=== PATIENT | female | born 1955 | race African-American/Black ===

== ENCOUNTER 2025-03-22 14:15 | Emergency (ER) | payer MEDICARE, MEDICAID, SELFPAY ==
--- OUTSIDE RECORDS SUMMARY | 2009-09-29 09:45 | XMS_ITS | Continuity of Care Document ---
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 [address] [facility] [address], [place], [address], [place]. tel:[phone] Family History Family Member Type Diagnosis Age At Onset No Information Payers Payer name Insurance type Covered constitution party ID Authoriza tion(s) Medicare [facility] [id number] Medicaid [facility] [id number] Social History Type Description Quantity Date Captured Comments Sex Female Smoking Status No Information Chief Complaint And Reason For Visit No Information Reason For Referral Reason For Referral No Information History Of Present Illness Encounter Date Complaint History Of Prese nt Illness No Information Functional Status Date Functional Assessmen t No Information Instructions Date Instruction Additional Infor mation No Information Assessments Type Assessment Date No Information Patient Care Teams Name Effective Dates (start - stop) Status Members No Information
--- OUTSIDE RECORDS SUMMARY | 2025-03-22 14:17 | XMS_ITS | Encounter Summary ---
Author Organization [facility] Address [address] [place] [address] Phone Care Team Providers Care Special Programs Director Name Role Phone Baron Kaur MD Primary Care Provider Encounter Details Date Type Department Care Team (Late st Contact Info) Description 07/05/2022 Telephone [facility] Endocrinology Metabolism and Lipid [address] 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
--- OUTSIDE RECORDS SUMMARY | 2025-03-22 14:17 | XMS_ITS | Data Portability ---
[facility] Organization [facility] Address [address] [place] [address] Care Team Providers Care Bulk Pigment Reducer Name Role Phone RICK YUAN Lance Crewmember [facility] (RHEUMATOLOGY) Rheumatolog ist YEISON ENRIQUE Breast Surgeon Assessment Encounter Date Assessment Date Assessment LastModified by Organization Details LastModified Time 10/09/2024 10/09/2024 The bilateral nature suggests that she may be resting the lateral parts of her lower legs on some object. oajao Not available 10/09/2024 13:49:22 10/18/2024 10/18/2024 The bilateral nature suggests that she may be resting the lateral parts of her lower legs on some object. oajao Not available 10/18/2024 13:08:52 Plan of Treatment Reminders Order Date Submit Date Provider Last Modified By Organization Details Last Modified Time Details Appointments NEW PATIENT 30 2024 10:30A M Unassigned Not available Not available Not available ANY 15 2024 10:30A M Baron Kaur MD Not available Not available Not available Lab HbA1c (hemogl obin A1c), blood 2024 025 [facility], [address] [facility], [address], [place], [address], 03/13/2025 08:30:11 lipid panel, serum 2024 025 [facility], [address] [facility], [address], [place], [address], 03/13/2025 08:30:10 albumin /creati nine, mass ratio, urine 2023 024 EMANUEL ALEJANDRO, [address] [place] [address], [address], [place], [address], 09/13/2024 10:13:37 lipid panel, serum 2023 024 E[facility]UEL [facility]AL[facility], [address] [place] [address], [address], [place], [address], 09/13/2024 10:13:38 HbA1c (hemogl obin A1c), blood 2023 024 [facility]UEL WAL[facility], [address] [place] [address], [address], [place], [address], 09/13/2024 10:13:39 Referral vascula r surgeon referra l 2024 025 EMANUEL Venegas MD, [address] [facility] [address],, [place], [address], 02/27/2025 04:22:11 Procedures None recorde d. Surgeries None recorde d. Imaging None recorde d. Medication Orders clotrim azole-b etameth asone 1 %-0.05 % topical cream 2024 025 [id number], [address] [place], [place], [id number], 10/09/2024 11:30:24 terbina fine HCl 250 mg tablet 2024 025 [id number], [address] [place], [id number], 01/17/2025 12:09:41 Lantus Solosta r U-100 Insulin 100 unit/mL (3 mL) subcuta neous pen 2024 025 [facility]EKA [facility][id number], [address] [place], [place], [id number], 09/13/2024 12:59:31 Lantus Solosta r U-100 Insulin 100 unit/mL (3 mL) subcuta neous pen 2023 024 [id number], [address] [place], [place], [id number], 03/29/2024 13:22:32 Patient TargetsNo targets recorded. Patient Instructions Encounter Date Encounter Id Patient Instructions Last Modified By Organization Details Last Modified Time 03/29/2024 [id number] Lantus 13 units AM, 7 units PM Labs in May, Follow up in June, oajao Not available 03/29/2024 13:39:01 09/13/2024 [id number] CGM Increase Aleks tus back to 13 units AM and & 7 units HS Close follow up with in 6 weeks with all your medications Lance Crewmember (Scheduled) oajao Not available 09/13/2024 13:33:14 10/09/2024 [id number] Terbinafine, uriel e effects were discussed Clotrimazole/Betame thasone Follow up in 2 weeks oajao Not available 10/09/2024 13:50:00 10/18/2024 [id number] Follow up in 3 months and PRN oajao Not available 10/18/2024 13:12:28 01/17/2025 [id number] A healthy lifestyle: care instructions oajao Not available 01/17/2025 12:04:37 Labs [employer] Ophthalmology Vascular surgery Follow up in 4 months and PRN oajao Not available 01/17/2025 12:23:35 Reason for Referral Vascular Surgeon Referral fo r Right carotid artery stenosis R. carotid artery stenosis, multiple risk factors Referring Physician: Baron Kaur, Internal Medicine, Encounter Date: 01/17/2025 Results Created Date Observation Date Name Description Value Unit Range Abnormal Flag Note LastModifiedBy Organization Detail LastModifiedTime 03/05/20 24 03/05/2024 Compr ehens robyn metab olic 2000 panel - Serum or Plasm a protein [mass/volume ] in serum or plasma 7.6 g/dL low: 6.1g/d Lhigh: 8.4g/d L Total Prote in 7.6 6.1 - 8.4 g/dL [facility] Not Available Not Available 07/24/2024 14:56:12 03/05/20 24 03/05/2024 [facility] [employer] [facility] 1999 panel - Serum or Plasm a albumin [mass/volume ] in serum or plasma by bromocresol green (bcg) dye binding method 4.2 g/dL low: 3.5g/d Lhigh: 5.2g/d L Album in 4.2 3.5 - 5.2 g/dL [facility] Not Available Not Available 07/24/2024 14:56:12 03/05/20 24 03/05/2024 [facility] [employer] extraTKT 2000 panel - Serum or Plasm a calcium [mass/volume ] in serum or plasma 9.2 mg/dL low: 8.6mg/ dLhigh : 10.3mg /dL Calci um 9.2 8.6 - 10.3 mg/dL [facility] Not Available Not Available 07/24/2024 14:56:12 03/05/20 24 03/05/2024 [facility] [place] 1999 panel - Serum or Plasm a urea nitrogen [mass/volume ] in serum or plasma 7 mg/dL low: 7mg/dL high: 23mg/d L BUN 7 7 - 23 mg/dL [facility] Not Available Not Available 07/24/2024 14:56:12 03/05/20 24 03/05/2024 [facility] ic 1999 panel - Serum or Plasm a bilirubin.to yarelis [mass/volume ] in serum or plasma 0.56 mg/dL low: 0.2mg/ dLhigh : 1.4mg/ dL Total Bilir ubin 0.56 0.20 - 1.40 mg/dL [facility] Not Available Not Available 07/24/2024 14:56:12 03/05/20 24 03/05/2024 [facility] ic 1999 panel - Serum or Plasm a alkaline phosphatase [enzymatic activity/vol ume] in serum or plasma 102 text: 35 - 129 IU/L Alk Phos, Total 102 35 - 129 IU/L [facility] Not Available Not Available 07/24/2024 14:56:12 03/05/20 24 03/05/2024 [facility] [employer] robyn [employer] olic 1999 panel - Serum or Plasm a aspartate aminotransfe rase [enzymatic activity/vol ume] in serum or plasma 22 text: 11 - 47 IU/L AST (SGOT ) 22 11 - 47 IU/L [facility] Not Available Not Available 07/24/2024 14:56:12 03/05/20 24 03/05/2024 [facility] [employer] robyn [employer] olic 1999 panel - Serum or Plasm a alanine aminotransfe rase [enzymatic activity/vol ume] in serum or plasma by no addition of P-5'-P 17 text: 6 - 53 IU/L ALT (SGPT ) 17 6 - 53 IU/L [facility] Not Available Not Available 07/24/2024 14:56:12 03/05/20 24 03/05/2024 [facility] [employer] ic 1999 panel - Serum or Plasm a creatinine [mass/volume ] in serum or plasma 0.63 mg/dL low: 0.6mg/ dLhigh : 1.1mg/ dL Creat inine 0.63 0.60 - 1.10 mg/dL [facility] Not Available Not Available 07/24/2024 14:56:12 03/05/20 24 03/05/2024 [facility] [employer] olic 1999 panel - Serum or Plasm a sodium [moles/volum e] in serum or plasma 141 mmol/ L low: 135mmo l/Lhig h: 145mmo l/L Sodiu m 141 135 - 145 mmol/ L [facility] Not Available Not Available 07/24/2024 14:56:12 03/05/20 24 03/05/2024 [employer] robyn [employer] olic 1999 panel - Serum or Plasm a potassium [moles/volum e] in serum or plasma 3.6 mmol/ L low: 3.3mmo l/Lhig h: 5.1mmo l/L Potas sium 3.6 3.3 - 5.1 mmol/ L [facility] Not Available Not Available 07/24/2024 14:56:12 03/05/20 24 03/05/2024 Compr ehens robyn metab olic 1999 panel - Serum or Plasm a chloride [moles/volum e] in serum or plasma 102 mmol/ L low: 95mmol /Lhigh : 107mmo l/L Chlor pretty 102 95 - 107 mmol/ L [facility] Not Available Not Available 07/24/2024 14:56:12 03/05/20 24 03/05/2024 Compr ehens robyn metab olic 1999 panel - Serum or Plasm a bicarbonate [moles/volum e] in serum or plasma 26 mmol/ L low: 21mmol /Lhigh : 29mmol /L CO2 Jeremiah nt 26 21 - 29 mmol/ L [facility] Not Available Not Available 07/24/2024 14:56:12 03/05/20 24 03/05/2024 Compr ehens robyn metab olic 1999 panel - Serum or Plasm a glucose [mass/volume ] in serum or plasma 194 mg/dL low: 64mg/d Lhigh: 99mg/d L high Gluco se 194 (H) 64 - 99 mg/dL [facility] Not Available Not Available 07/24/2024 14:56:12 03/05/20 24 03/05/2024 Compr ehens robyn metab olic 1999 panel - Serum or Plasm a glomerular filtration rate/1.73 sq M.predicted among non-blacks [volume rate/area] in serum, plasma or blood by creatinine-b ased formula (MDRD) >90.0 text: >60.0 mL/min /1.73 m2 eGFR >90.0 >60.0 mL/mi n/1.[address] [facility] Not Available Not Available 07/24/2024 14:56:12 03/05/20 24 03/05/2024 Compr ehens robyn metab olic 2000 panel - Serum or Plasm a interpretati on and review of laboratory results ABNORM AL Not Available Not Available 14:56:12 09/13/19 25 09/13/2024 ALBUM IN/CR EATIN INE RATIO ,URIN E creatinine, urine 46.7 mg/dL notest ab. Not Available [facility] ([facility]) [address] [place], [address], 09/13/2024 10:13:37 09/13/19 25 09/13/2024 ALBUM IN/CR EATIN INE RATIO ,URIN E albumin, urine 22.4 ug/mL notest ab. Not Available [facility] ([facility]) [address] [place], [address], 09/13/2024 10:13:37 09/13/19 25 09/13/2024 ALBUM IN/CR EATIN INE RATIO ,URIN E alb/creat ratio 48 mg/g_ creat 0-29 above high normal Lori l: 0 - 29 Moder ately incre ased: 30 - 300 Sever theresa incre ased: >300 Not Available [facility] ([facility]) [address] [place], [address], 09/13/2024 10:13:37 09/13/19 25 09/13/2024 LIPID PANEL cholesterol, total 150 mg/dL 100-19 9 Not Available [facility] ([facility]) [address] [place], [address], 09/13/2024 10:13:38 09/13/19 25 09/13/2024 LIPID PANEL triglyceride s 144 mg/dL 0-149 Not Available [facility] ([facility]) [address] [place], [address], 09/13/2024 10:13:38 09/13/19 25 09/13/2024 LIPID PANEL HDL cholesterol 37 mg/dL >39 below low normal Not Available [facility] ([facility]) [address] [place], [address], 09/13/2024 10:13:38 09/13/19 25 09/13/2024 LIPID PANEL VLDL cholesterol maximo 25 mg/dL 5-40 Not Available [facility] ([facility]) [address] [place], [address], 09/13/2024 10:13:38 09/13/19 25 09/13/2024 LIPID PANEL LDL chol calc ([facility]) 88 mg/dL 0-99 Not Available [facility] ([facility]) [address] [facility], [place], [address], 09/13/2024 10:13:38 09/13/19 25 09/13/2024 HEMOG LOBIN A1C hemoglobin A1C 8.3 % 4.8-5. 6 above high normal Predi abete s: 5.7 - 6.4 Diabe bre: >6.4 Glyce nimesh contr ol for adult s with diabe bre: <7.0 Not Available [facility] ([facility]) [address] [facility], [place], [address], 09/13/2024 10:13:39 09/25/19 25 09/24/2024 CBC W Auto Diffe renti al panel - Blood leukocytes [#/volume] in blood by automated count 5.7 K/uL low: 3.6K/u Lhigh: 11.2K/ uL White Blood Count 5.7 3.6 - 11.2 K/uL [facility] Not Available Not Available 09/26/2024 16:12:44 09/25/19 25 09/24/2024 CBC W Auto Diffe renti al panel - Blood erythrocytes [#/volume] in blood by automated count 4.14 text: 3.63 - 4.92 M/uL RBC 4.14 3.63 - 4.92 M/uL [facility] Not Available Not Available 09/26/2024 16:12:44 09/25/19 25 09/24/2024 CBC W Auto Diffe renti al panel - Blood hemoglobin [mass/volume ] in blood 13.7 g/dL low: 11.9g/ dLhigh : 15.5g/ dL Hemog lobin 13.7 11.9 - 15.5 g/dL [facility] Not Available Not Available 09/26/2024 16:12:44 09/25/19 25 09/24/2024 CBC W Auto Diffe renti al panel - Blood hematocrit [volume fraction] of blood by automated count 40.9 % low: 36.1%h igh: 44.3% Hemat ocrit 40.9 36.1 - 44.3 % [facility] Not Available Not Available 09/26/2024 16:12:44 09/25/19 25 09/24/2024 CBC W Auto Diffe gege al panel - Blood MCV [entitic mean volume] in red blood cells by automated count 98.9 fL low: 80fLhi gh: 97.6fL high MCV 98.9 (H) 80.0 - 97.[address] [facility] Not Available Not Available 09/26/2024 16:12:44 09/25/19 25 09/24/2024 CBC W Auto Difftess de guzman al panel - Blood MCH [entitic mass] by automated count 33.1 pg low: 26.7pg high: 33.7pg MCH 33.1 26.7 - 33.[address] [facility] Not Available Not Available 09/26/2024 16:12:44 09/25/19 25 09/24/2024 CBC W Auto Diffe gege al panel - Blood MCHC [entitic mass/volume] in red blood cells by automated count 33.4 g/dL low: 32.7g/ dLhigh : 35.5g/ dL MCHC 33.4 32.7 - 35.5 g/dL [facility] Not Available Not Available 09/26/2024 16:12:44 09/25/19 25 09/24/2024 CBC W Auto Difftess de guzman al panel - Blood erythrocyte [distwidth] in red blood cells by automated count 12.2 % low: 12.3%h igh: 17% low RBC Dist Width 12.2 (L) 12.3 - 17.0 % [facility] Not Available Not Available 09/26/2024 16:12:44 09/25/19 25 09/24/2024 CBC W Auto Diffe gege al panel - Blood platelets [#/volume] in blood by automated count 284 K/uL low: 140K/u Lhigh: 440K/u L Plate let Count 284 140 - 440 K/uL [facility] Not Available Not Available 09/26/2024 16:12:44 09/25/19 25 09/24/2024 CBC W Auto Diffe renti al panel - Blood platelet [entitic mean volume] in blood by automated count 7.8 fL low: 6.8fLh igh: 10.4fL MPV 7.8 6.8 - 10.[address] [facility] Not Available Not Available 09/26/2024 16:12:44 09/25/19 25 09/24/2024 CBC W Auto Diffe renti al panel - Blood neutrophils/ leukocytes in blood by automated count 43.6 % low: 38.7%h igh: 74.5% Neutr ophil s % 43.6 38.7 - 74.5 % [facility] Not Available Not Available 09/26/2024 16:12:44 09/25/19 25 09/24/2024 CBC W Auto Diffe renti al panel - Blood lymphocytes/ leukocytes in blood by automated count 37.2 % low: 20%hig h: 54.3% Lymph ocyte % 37.2 20.0 - 54.3 % [facility] Not Available Not Available 09/26/2024 16:12:44 09/25/19 25 09/24/2024 CBC W Auto Diffe renti al panel - Blood monocytes/le ukocytes in blood by automated count 12.9 % low: 4.3%hi gh: 13.5% Monoc ytes % 12.9 4.3 - 13.5 % [facility] Not Available Not Available 09/26/2024 16:12:44 09/25/19 25 09/24/2024 CBC W Auto Diffe renti al panel - Blood eosinophils/ leukocytes in blood by automated count 5.2 % low: 0%high : 6% Eosin ophil s % 5.2 0.0 - 6.0 % [facility] Not Available Not Available 09/26/2024 16:12:44 09/25/19 25 09/24/2024 CBC W Auto Diffe renti al panel - Blood basophils/le ukocytes in blood by automated count 1.1 % low: 0%high : 3% Basop hil % 1.1 0.0 - 3.0 % [facility] Not Available Not Available 09/26/2024 16:12:44 09/25/19 25 09/24/2024 CBC W Auto Diffe renti al panel - Blood neutrophils [#/volume] in blood by automated count 2.5 K/uL low: 1.8K/u Lhigh: 6.6K/u L Absol [place] Neutr ophil 2.5 1.8 - 6.6 K/uL [facility] Not Available Not Available 09/26/2024 16:12:44 09/25/19 25 09/24/2024 CBC W Auto Diffe renti al panel - Blood lymphocytes [#/volume] in blood by automated count 2.1 K/uL low: 0.8K/u Lhigh: 3.3K/u L Absol [place] Lymph ocyte 2.1 0.8 - 3.3 K/uL [facility] Not Available Not Available 09/26/2024 16:12:44 09/25/19 25 09/24/2024 CBC W Auto Diffe renti al panel - Blood monocytes [#/volume] in blood by automated count 0.7 K/uL low: 0.2K/u Lhigh: 1.2K/u L Absol [place] Monoc yte 0.7 0.2 - 1.2 K/uL [facility] Not Available Not Available 09/26/2024 16:12:44 09/25/19 25 09/24/2024 CBC W Auto Diffe renti al panel - Blood eosinophils [#/volume] in blood by automated count 0.3 K/uL low: 0K/uLh igh: 0.5K/u L Absol [place] Eosin ophil 0.3 0.0 - 0.5 K/uL [facility] Not Available Not Available 09/26/2024 16:12:44 09/25/19 25 09/24/2024 CBC W Auto Diffe renti al panel - Blood basophils [#/volume] in blood by automated count 0.1 K/uL low: 0K/uLh igh: 0.2K/u L Absol [place] Basop hil 0.1 0.0 - 0.2 K/uL [facility] Not Available Not Available 09/26/2024 16:12:44 09/25/19 25 09/24/2024 CBC W Auto Diffe renti al panel - Blood nucleated erythrocytes /leukocytes [ratio] in blood by automated count 0.1 text: 0.0 - 0.4 /100 WBC Nucle ated RBC % 0.1 0.0 - 0.4 /[address] [facility] Not Available Not Available 09/26/2024 16:12:44 09/25/19 25 09/24/2024 CBC W Auto Diffe renti al panel - Blood interpretati on and review of laboratory results Abnorm al Not Available Not Available 16:12:44 09/25/19 25 09/24/2024 C react robyn prote in [Mass /volu me] in Serum or Plasm a C reactive protein [mass/volume ] in serum or plasma 5.3 mg/L high: 5mg/L high C-[place] ctive Prote in, Acute 5.3 (H) <5.0 mg/L [facility] Not Available Not Available 09/26/2024 16:12:44 09/25/19 25 09/24/2024 C react robyn prote in [Mass /volu me] in Serum or Plasm a interpretati on and review of laboratory results Abnorm al Not Available Not Available 16:12:44 09/25/19 25 09/24/2024 Compr ehens robyn metab olic 1999 panel - Serum or Plasm a protein [mass/volume ] in serum or plasma 8.4 g/dL low: 6.1g/d Lhigh: 8.4g/d L Total Prote in 8.4 6.1 - 8.4 g/dL [facility] Not Available Not Available 09/26/2024 16:12:43 09/25/19 25 09/24/2024 Compr ehens robyn metab olic 2000 panel - Serum or Plasm a albumin [mass/volume ] in serum or plasma by bromocresol green (bcg) dye binding method 4 g/dL low: 3.5g/d Lhigh: 5.2g/d L Album in 4.0 3.5 - 5.2 g/dL [facility] Not Available Not Available 09/26/2024 16:12:43 09/25/19 25 09/24/2024 Compr ehens robyn metab olic 2000 panel - Serum or Plasm a calcium [mass/volume ] in serum or plasma 9.2 mg/dL low: 8.6mg/ dLhigh : 10.3mg /dL Calci um 9.2 8.6 - 10.3 mg/dL [facility] Not Available Not Available 09/26/2024 16:12:43 09/25/19 25 09/24/2024 [facility] [employer] [facility] 1999 panel - Serum or Plasm a urea nitrogen [mass/volume ] in serum or plasma 8 mg/dL low: 7mg/dL high: 23mg/d L BUN 8 7 - 23 mg/dL [facility] Not Available Not Available 09/26/2024 16:12:43 09/25/19 25 09/24/2024 [facility] [employer] [facility] 1999 panel - Serum or Plasm a bilirubin.to yarelis [mass/volume ] in serum or plasma 0.53 mg/dL low: 0.2mg/ dLhigh : 1.4mg/ dL Total Bilir ubin 0.53 0.20 - 1.40 mg/dL [facility] Not Available Not Available 09/26/2024 16:12:43 09/25/19 25 09/24/2024 [facility] [employer] [facility] 1999 panel - Serum or Plasm a alkaline phosphatase [enzymatic activity/vol ume] in serum or plasma 99 text: 35 - 129 IU/L Alk Phos, Total 99 35 - 129 IU/L [facility] Not Available Not Available 09/26/2024 16:12:43 09/25/19 25 09/24/2024 [facility] [employer] extraTKT 1999 panel - Serum or Plasm a aspartate aminotransfe rase [enzymatic activity/vol ume] in serum or plasma 25 text: 11 - 47 IU/L AST (SGOT ) 25 11 - 47 IU/L [facility] Not Available Not Available 09/26/2024 16:12:43 09/25/19 25 09/24/2024 [facility] [employer] robyn [employer] ic 1999 panel - Serum or Plasm a alanine aminotransfe rase [enzymatic activity/vol ume] in serum or plasma by no addition of P-5'-P 15 text: 6 - 53 IU/L ALT (SGPT ) 15 6 - 53 IU/L [facility] Not Available Not Available 09/26/2024 16:12:43 09/25/19 25 09/24/2024 Compr [employer] robyn metab olic 1999 panel - Serum or Plasm a creatinine [mass/volume ] in serum or plasma 0.54 mg/dL low: 0.6mg/ dLhigh : 1.1mg/ dL low Creat inine 0.54 (L) 0.60 - 1.10 mg/dL [facility] Not Available Not Available 09/26/2024 16:12:43 09/25/19 25 09/24/2024 Compr [employer] robyn metab olic 1999 panel - Serum or Plasm a sodium [moles/volum e] in serum or plasma 141 mmol/ L low: 135mmo l/Lhig h: 145mmo l/L Sodiu m 141 135 - 145 mmol/ L [facility] Not Available Not Available 09/26/2024 16:12:43 09/25/19 25 09/24/2024 Compr [employer] robyn metab olic 1999 panel - Serum or Plasm a potassium [moles/volum e] in serum or plasma 3.6 mmol/ L low: 3.3mmo l/Lhig h: 5.1mmo l/L Potas sium 3.6 3.3 - 5.1 mmol/ L [facility] Not Available Not Available 09/26/2024 16:12:43 09/25/19 25 09/24/2024 Compr [employer] robyn metab olic 1999 panel - Serum or Plasm a chloride [moles/volum e] in serum or plasma 102 mmol/ L low: 95mmol /Lhigh : 107mmo l/L Chlor pretty 102 95 - 107 mmol/ L [facility] Not Available Not Available 09/26/2024 16:12:43 09/25/19 25 09/24/2024 Compr ehens robyn metab olic 2000 panel - Serum or Plasm a bicarbonate [moles/volum e] in serum or plasma 25 mmol/ L low: 21mmol /Lhigh : 29mmol /L CO2 Jeremiah nt 25 21 - 29 mmol/ L [facility] Not Available Not Available 09/26/2024 16:12:43 09/25/19 25 09/24/2024 Compr ehens robyn metab olic 2000 panel - Serum or Plasm a glucose [mass/volume ] in serum or plasma 114 mg/dL low: 64mg/d Lhigh: 99mg/d L high Gluco se 114 (H) 64 - 99 mg/dL [facility] Not Available Not Available 09/26/2024 16:12:43 09/25/19 25 09/24/2024 Compr ehens robyn metab olic 2000 panel - Serum or Plasm a glomerular filtration rate [volume rate/area] in serum, plasma or blood by creatinine-b ased formula (MDRD)/1.73 sq M among non black population >90.0 text: >60.0 mL/min /1.73 m2 eGFR >90.0 >60.0 mL/mi n/1.[address] [facility] Not Available Not Available 09/26/2024 16:12:43 09/25/19 25 09/24/2024 Compr ehens robyn metab olic 2000 panel - Serum or Plasm a interpretati on and review of laboratory results Abnorm al Not Available Not Available 16:12:43 03/12/20 25 03/13/2025 LIPID PANEL cholesterol, total 193 mg/dL 100-19 9 Not Available [facility] ([facility]) [address] [place], [address], 03/13/2025 08:30:09 03/12/20 25 03/13/2025 LIPID PANEL triglyceride s 130 mg/dL 0-149 Not Available [facility] ([facility]) [address] [place], [address], 03/13/2025 08:30:09 03/12/20 25 03/13/2025 LIPID PANEL HDL cholesterol 61 mg/dL >39 Not Available [facility] ([facility]) [address] [place], [address], 03/13/2025 08:30:09 03/12/20 25 03/13/2025 LIPID PANEL VLDL cholesterol maximo 23 mg/dL 5-40 Not Available [facility] ([facility]) [address] [facility], [place], [address], 03/13/2025 08:30:09 03/12/20 25 03/13/2025 LIPID PANEL LDL chol calc ([facility]) 109 mg/dL 0-99 above high normal Not Available [facility] ([facility]) [address] [facility], [place], [address], 03/13/2025 08:30:09 03/12/20 25 03/13/2025 HEMOG LOBIN A1C hemoglobin A1C 7.7 % 4.8-5. 6 above high normal Predi abete s: 5.7 - 6.4 Diabe bre: >6.4 Glyce nimesh contr ol for adult s with diabe bre: <7.0 Not Available [facility] ([facility]) [address] [facility], [place], [address], 03/13/2025 08:30:11 03/29/20 24 pulmo nary stres s test, compl ex (PROC ) No observ ation record ed. [facility] Not Available 2024 12:50:44 11/15/19 25 10/25/2024 XR, cervi maximo spine No observ ation record ed. [facility] [address] [place], [address], 01/17/2025 12:01:37 11/15/19 25 10/25/2024 XR, lumba r spine No observ ation record ed. [facility] [address] [place], [address], 01/17/2025 12:01:37 11/15/19 25 10/25/2024 XR, knee No observ ation record ed. [facility] [address] [place], [address], 01/17/2025 12:01:37 01/09/20 25 01/08/2025 US, miguel salas, anastasiia id arter y No observ ation record ed. [facility] [address] [place], [address], 01/17/2025 12:01:37 01/09/20 25 01/08/2025 MAMMO , scree qasim, digit al, bilat eral No observ ation record ed. [facility] [address] [place], [address], 01/17/2025 12:01:36 01/13/20 25 01/08/2025 US, duple x, carot id arter y No observ ation record ed. [facility] [address] [place], [address], 01/27/2025 11:19:30 Result Notes None recorded. Problems Name Problem SNOMED Code Status Onset Date Resolution Date Notes Provider Name and Address Organization Details Recorded Time Serous conjunctivi tis, except viral 7112023 Active Baron Kaur MD Attn: Paxton ramirez,[address] [facility], [place], [address], [place] [facility] 3 15:06:36 Uncontrolle d type 2 diabetes mellitus [id number] Active Baron Kaur MD Attn: Paxton ramirez,[address] [facility], [place], [address], [place] [facility] 3 15:07:47 Hand pain [id number] Active Baron Kaur MD Attn: Paxton g,[address] [facility], [place], [address], [place] [facility] 3 15:07:47 Verruca vulgaris 31094717 Active Baron Kaur MD Attn: Paxton g,[address] [facility], [place], [address], [place] [facility] 3 15:07:47 Rheumatoid arthritis 27675364 Active Baron Kaur MD Attn: Paxton ramirez,[address] [facility], [place], [address], [place] [facility] 3 15:07:47 Vitamin D deficiency 47522339 Active Baron Kaur MD Attn: Paxton ramirez,[address] [facility], [place], [address], [place] [facility] 3 15:07:46 Candidal vulvovagini tis 74512929 Active Baron Kaur MD Attn: Paxton ramirez,[address] [facility], [place], [address], [place] [facility] 3 15:07:47 Allergic rhinitis 48345884 Active Baron Kaur MD Attn: Darbynilson ramirez,[address] [facility], [place], [address], [place] [facility] 3 15:07:47 Disorder of eye 396568291 Active Baron Kaur MD Attn: Paxton ramirez,[address] [facility], [place], [address], [place] [facility] 3 15:07:46 Hemorrhoids 59619076 Active Baron Kaur MD Attn: Darbynilson ramirez,[address] [facility], [place], [address], [place] [facility] 3 15:07:47 Seasonal allergic rhinitis 247046019 Active 2018 aBron Kaur MD Attn: Paxton ramirez,[address] [place], [address], [place] [facility] 3 15:07:46 Essential hypertensio n 67697769 Active 2018 Baron Kaur MD Attn: Paxton ramirez,[address] [place] [address], [address], [place] [facility] 5 11:26:42 Menopause present 189361102 Active 2018 Baron Kaur MD Attn: Paxton james,[address] [place], [address], [place] [facility] 3 15:07:46 Bone density below reference range 687006955 Active 2018 Baron Kaur MD Attn: Paxton ramirez,[address] [place], [address], [place] [facility] 3 15:07:47 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 Baron Kaur MD Attn: Paxton ramirez,[address] [place], [address], [place] [facility] 3 15:07:46 Sarcoidosis 57955498 Active 2019 Baron Kaur MD Attn: Paxton ramirez,[address] [place], [address], [place] [facility] 3 15:07:46 History of breast biopsy with benign finding 5467367461548 05 Active 2019 Baron Kaur MD Attn: Paxton ramirez,[address] [place], [address], [place] [facility] 3 15:07:46 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 Baron Kaur MD Attn: Paxton ramirez,[address] [place], [address], [place] [facility] 3 15:07:47 Traumatic amputation of left upper limb 0367689214 Active 2023 Baron Kaur MD Attn: Paxton ramirez,[address] [place], [address], [place] [facility] 4 10:10:20 History of influenza 851755104 Active 2024 Baron Kaur MD Attn: Paxton ramirez,[address] [place], [address], [place] [facility] 5 13:37:56 Pruritic rash 58486540 Active 2024 Baron Kaur MD Attn: Paxton ramirez,[address] [facility] [place], [address], [place] [facility] 5 11:26:48 Right carotid artery stenosis 0865922642461 00 Active 2024 Baron Kaur MD Attn: Darbynilson ramirez,[address] [facility], [place], [address], [place] [facility] 5 12:06:04 Vascular calcificati on 947669743 Active 2024 Baron Kaur MD Attn: Paxton james,[address] [facility], [place], [address], [place] [facility] 5 12:07:03 History of amputation of left arm 4355926715088 9106 Active 2024 Baron Kaur MD Attn: Paxton james,[address] [facility], [place], [address], [place] [facility] 5 12:22:24 Problem Notes None recorded. Procedures Surgical History Date Name Laterality Status Provider Name and Address Organization Details Recorded Time 5 Diabetic Foot Exam completed Baron Kaur MD Attn: Accounting,[address] [facility], [place], [address], [place] [facility] 01/17/2025 12:19:51 4 Diabetic Foot Exam completed Baron Kaur MD Attn: Accounting,[address] [facility], [place], [address], [place] [facility] 11/09/2023 13:18:01 3 colonoscopy completed Baron Kaur MD Attn: Accounting,[address] [facility], [place], [address], [place] [facility] 09/09/2022 21:29:05 3 Colonoscopy completed Baron Kaur MD Attn: Accounting,[address] [facility], [place], [address], [place] [facility] 08/29/2022 21:10:45 0 Date of Last Pap Smear completed Bhakti Summers [place] [facility] 04/03/2020 11:33:14 1 colonoscopy completed Baron Kaur MD Attn: Accounting,[address] [facility], [place], [address], [facility] 03/04/2020 14:15:45 4 Caesarean Section completed Liyah Rhodes MA [facility] 06/30/2015 10:49:23 8 Caesarean Section completed Liyah Rhodes MA [facility] 06/30/2015 10:49:23 6 Caesarean Section completed Liyah Rhodes MA [facility] 06/30/2015 10:49:23 4 Caesarean Section completed Liyah Rhodes MA [facility] 06/30/2015 10:49:23 amputation of upper limb completed Rhonda Razo MA [facility] 10/12/2020 10:17:44 Imaging Results None recorded. Procedure Notes None recorded. Medical Equipment None Reported. Allergies Allergen ID Allergen Name Allergen Category Reaction Reaction Severity Criticality Documentation Date Start Date Code Code System Note Provider Name and Address Organization Details Recorded Time [id number] codeine medicatio n Not available Not available Not available 12/21/2022 2670 RxNorm Other react ions and sever ities : 'Adve rse react ion to subst ance' . Baron Kaur MD Attn: Paxton g,[address] [place], [address], [facility] 3 15:07:37 250801 propoxyph steven medicatio n Not available Not available Not available 12/21/2022 8785 RxNorm Other react ions and sever ities : 'Adve rse react ion to subst ance' . Baron Kaur MD Attn: Accountin g,[address] [place], [address], [facility] 3 15:07:37 39800 propoxyph steven hydrochlo ride medicatio n nausea severe Not available 10/27/2014 20244 RxNorm swell ing and nause a Liyah Rhodes [place] null, [place] - [place] 6 10:44:58 [id number] Amaryl medicatio n headache mild Not available 11/01/20162016 50370 2 RxNorm Baron Kaur MD Attn: Paxton ramirez,[address] [facility], [place], [address], [facility] - [facility] 7 11:16:38 Medications Name Sig Start Date Stop Date Status Note LastModified by Organization Details LastModified Time BD Ultra Fine Pen [place] Mini 5 mm X 31 gauge BID use 2023 active Not Available Not Available Not Avai lable amoxicill in 500 mg capsule 11/01 completed Not Available Not Available Not Available furosemid e 40 mg tablet 10/27 completed Not Available Not Available Not Available atorvasta tin 40 mg tablet Take 1 tablet every day by oral route at bedtime. 01/28 completed On Rosuvast atin Not Available Not Available Not Available Anusol-HC 2.5 % rectal cream with applicato r Insert 1 applicat ion as needed by rectal route. 2015 active Not Available Not Available Not Avai lable fluconazo le 150 mg tablet TAKE 1 TABLET BY MOUTH EVERY DAY FOR 1 DAY DIRECTED FOR VAGINAL YEAST INFECTIO N 09/13 completed Not Available Not Available Not Available hydrocodo ne 5 mg-acetam inophen 325 mg tablet TAKE 1 TABLET BY MOUTH TWICE DAILY NEEDED 03/21 completed Not Available Not Available Not Available glipizide ER 10 mg tablet, extended release 24 hr TAKE 1 TABLET BY MOUTH EVERY DAY WITH A MEAL active Not Available Not Available No t Available prednison e 20 mg tablet 12/19 completed Not Available Not Available Not Available prednison e 5 mg tablet 09/06 completed Not Available Not Available Not Available clobetaso l 0.05 % topical cream APPLY A THIN LAYER TO THE AFFECTED AREA TWICE DAILY 10/12 completed Not Available Not Available Not Available pioglitaz one 45 mg tablet 04/06 completed Not Available Not Available Not Available penicilli n V potassium 500 mg tablet Take 1 tablet every 8 hours by oral route as directed for 7 days. 03/04 completed Not Available Not Available Not Available metronida zole 500 mg tablet 10/27 completed Not Available Not Available Not Available acetamino phen 300 mg-codein e 30 mg tablet TAKE 1 TABLET BY MOUTH EVERY 8 HOURS NEEDED 07/20 completed Not Available Not Available Not Available sulfameth oxazole 800 mg-trimet hoprim 160 mg tablet 10/27 completed Not Available Not Available Not Available peg-elect rolyte solution 420 gram oral solution MIX AND DRINK DIRECTED 09/20 completed Not Available Not Available Not Available tramadol 50 mg tablet TAKE 2 TABLETS BY MOUTH EVERY 6-8 HOURS NEEDED 04/27 completed Not Available Not Available Not Available guaifenes in 100 mg/5 mL oral liquid Take 10 mL every 4 hours by oral route as directed for 7 days. 11/08 completed Not Available Not Available Not Available glimepiri de 2 mg tablet Take 1 tablet every day by oral route with meals for 90 days. 10/11 completed Headache s Not Available Not Available Not Available Gentak 0.3 % (3 mg/gram) eye ointment 04/06 completed Not Available Not Available Not Available glimepiri de 1 mg tablet Take 1 tablet every day by oral route in the morning for 90 days. 02/20 completed Not Available Not Available Not Available ketorolac 0.5 % eye drops INSTILL 1 DROP INTO LEFT EYE ONCE DAILY STARTING 2 DAYS PRIOR TO SURGERY active Not Available Not Available No t Available meloxicam 7.5 mg tablet 07/17 completed Not Available Not Available Not Available Tessalon Perles 100 mg capsule Take 1 capsule 3 times a day by oral route as needed for 5 days. 11/08 completed Not Available Not Available Not Available terbinafi ne HCl 250 mg tablet TAKE 1 TABLET BY MOUTH EVERY DAY FOR 14 DAYS DIRECTED 01/17 completed Not Available Not Available Not Available prednisol one acetate 1 % eye drops,asuncion pension SHAKE LIQUID AND INSTILL 1 DROP IN RIGHT EYE THREE TIMES DAILY. START AFTER SURGERY DIRECTED active Not Available Not Available No t Available methotrex ate sodium 2.5 mg tablet TAKE 8 TABLET BY MOUTH EVERY 7 DAYS. active Not Available Not Available No t Available Lidoderm 5 % topical patch One patch for 12 hours/da y 07/20 completed Not Available Not Available Not Available Proctozon e-HC 2.5 % topical cream perineal applicato r APPLY RECTALLY TWICE DAILY 07/17 completed Not Available Not Available Not Available amlodipin e 10 mg tablet TAKE 1 TABLET BY MOUTH EVERY DAY DIRECTED active Not Available Not Available No t Available hydrocodo ne 7.5 mg-acetam inophen 325 mg tablet TAKE 1 TABLET BY MOUTH 2-3 TIMES DAILY NEEDED MUST LAST 28 DAYS active Not Available Not Available No t Available oseltamiv ir 75 mg capsule TAKE 1 CAPSULE BY MOUTH TWICE DAILY 09/13 completed Not Available Not Available Not Available nystatin 100,000 unit/gram topical cream APPLY TO THE AFFECTED AREA TWICE DAILY active Not Available Not Available No t Available clotrimaz ole-betam ethasone 1 %-0.05 % topical cream APPLY TOPICALL Y TO THE AFFECTED AREA TWICE DAILY FOR 7 DAYS DIRECTED FOR RASH active Not Available Not Available No t Available promethaz ine 25 mg tablet TAKE 1/2 TABLET BY MOUTH EVERY 6 HOURS NEEDED FOR NAUSEA 03/21 completed Not Available Not Available Not Available polymyxin B sulfate 10,000 unit-trim ethoprim 1 mg/mL eye drops INSTILL 1 DROP IN LEFT EYE THREE TIMES DAILY. START 2 DAYS BEFORE SURGERY active Not Available Not Available No t Available losartan 25 mg tablet TAKE 1 TABLET BY MOUTH DAILY active Not Available Not Available No t Available hydrochlo rothiazid e 12.5 mg capsule TK 1 C PO QD 12/21 completed HCTZ was stopped on her recent admissio n to [facility] 09/2020 Not Available Not Available Not Available gabapenti n 300 mg capsule TAKE 3 CAPSULES BY MOUTH THREE TIMES DAILY NEEDED (Denied, she is on Lyrica) active Denied, she is on Lyrica Not Available Not Available Not Available aspirin 81 mg chewable tablet Chew 1 tablet every day by oral route. 10/12 completed Not Available Not Available Not Available folic acid 1 mg tablet Take 1 tablet every day by oral route. active Not Available Not Available No t Available hydrochlo rothiazid e 25 mg tablet Take 1 tablet every day by oral route for 90 days. 03/04 completed Not Available Not Available Not Available levofloxa geronimo 500 mg tablet 10/27 completed Not Available Not Available Not Available Anusol-HC 25 mg rectal supposito ry Insert 1 supposit ory twice a day by rectal route for 14 days. 02/25 completed Not Available Not Available Not Available methylpre dnisolone 4 mg tablets in a dose pack 11/08 completed Not Available Not Available Not Available Vitamin D2 1,250 mcg (50,000 unit) capsule TAKE 1 CAPSULE BY MOUTH EVERY WEEK 02/25 completed Not Available Not Available Not Available fluticaso ne propionat e 50 mcg/actua tion nasal spray,[employer]ion pension SHAKE LIQUID AND USE 2 SPRAYS IN EACH NOSTRIL EVERY DAY DIRECTED active Not Available Not Available No t Available metformin ER 500 mg tablet,ex tended release 24 hr TAKE 4 TABLETS BY MOUTH EVERY DAY active Not Available Not Available No t Available naproxen 500 mg tablet 09/06 completed Not Available Not Available Not Available amoxicill in 875 mg-potass ium clavulana te 125 mg tablet TAKE 1 TABLET BY MOUTH TWICE DAILY FOR 7 DAYS 09/13 completed Not Available Not Available Not Available tobramyci n 0.3 %-dexamet hasone 0.1 % eye drops,[employer]uncion pension 04/06 completed Not Available Not Available Not Available neomycin 3.5 mg/g-poly myxin B 10,000 unit/g-de xameth 0.1 % eye oint 11/01 completed Not Available Not Available Not Available rosuvasta tin 10 mg tablet TAKE 1 TABLET BY MOUTH EVERY DAY AT BEDTIME FOR CHOLESTE ROL active Not Available Not Available No t Available rosuvasta tin 20 mg tablet Take 1 tablet every day by oral route for 90 days. 07/17 completed Not Available Not Available Not Available BD Ultra-Fin e Mini Pen Needle 31 gauge x 3/16 USE WITH INJECTIO NS ONCE DAILY active Not Available Not Available No t Available pregabali n 75 mg capsule TAKE 1 CAPSULE BY MOUTH TWICE DAILY active Not Available Not Available No t Available aspirin 81 mg active Not Available Not Avail able Not Available metformin 04/06 completed Not Available Not Available Not Available Remicade active Not Available Not Avai lable Not Available BD Ultra-Fin e Short Pen Needle 31 gauge x 5/16 USE ONCE DAILY WITH INSULIN active Not Available Not Available No t Available Oysco 500/D 500 mg-5 mcg (200 unit) tablet TAKE 1 TABLET BY MOUTH TWICE DAILY 04/27 completed Not Available Not Available Not Available hydrochlo rothiazid e 12.5 mg tablet one po daily 02/25 completed Not Available Not Available Not Available Lantus Solostar U-100 Insulin 100 unit/mL (3 mL) subcutane ous pen INJECT 13 UNITS UNDER THE SKIN EVERY MORNING AND INJECT 7 UNITS EVERY EVENING active Not Available Not Available No t Available oxycodone 10 mg tablet Take 1 tablet every day by oral route at bedtime. 01/28 completed On Tyl #3 Not Available Not Available Not Available Calcium with Vitamin D 600 mg-10 mcg (400 unit) tablet Take 1 tablet twice a day by oral route. 07/01 completed Not Available Not Available Not Available Tradjenta 5 mg tablet TAKE 1 TABLET BY MOUTH EVERY DAY DIRECTED active Not an active medicati on Not Available Not Available Not Available Accu-Chek Linette Plus test strips USE 1 STRIP TWICE DAILY 2018 active Not Available Not Available Not Avai lable Jardiance 10 mg tablet TAKE 1 TABLET BY MOUTH EVERY DAY active Not Available Not Available No t Available BD Ultra-Fin e Micro Pen Needle 32 gauge x 1/4 USE ONCE DAILY active Not Available Not Available No t Available Ozempic 1 mg/dose (2 mg/1.5 mL) subcutane ous pen injector 07/17 completed Not Available Not Available Not Available Fluzone High-Dose Quad (PF) 240 mcg/0.7 mL IM syringe 07/01 completed Not Available Not Available Not Available Vitals Date Recorded Body height Body mass index (BMI) Body weight Heart rate Oxygen saturation Oxygen saturation in Arterial blood by Pulse oximetry Systolic And Diastolic Provider Name and Address Organization Details Last Updated DateTime 5 149.86 cm 28.8 kg/m2 45661.6 3 g 80 /min 98 % 98 % 156/70 mm[Hg] Rhonda Razo [place] [facility] 5 12:40:24 Date Recorded Body height Body mass index (BMI) Body weight Oxygen saturation Oxygen saturation in Arterial blood by Pulse oximetry Heart rate Systolic And Diastolic Provider Name and Address Organization Details Last Updated DateTime 5 149.86 cm 29 kg/m2 00644.8 6 g 98 % 98 % 76 /min 160/74 mm[Hg] Rhonda Razo MA [facility] 5 11:14:11 Date Recorded Body height Body mass index (BMI) Body weight Oxygen saturation Oxygen saturation in Arterial blood by Pulse oximetry Respiratory rate Heart rate Body temperature Systolic And Diastolic Provider Name and Address Organization Details Last Updated DateTime 5 149.86 cm 28.8 kg/m2 18605.9 9 g 97 % 97 % 18 /min 64 /min 97.9 [degF] 144/70 mm[Hg] Rhonda Razo MA [facility] 5 13:02:13 Date Recorded Body height Body mass index (BMI) Body weight Heart rate Oxygen saturation Oxygen saturation in Arterial blood by Pulse oximetry Respiratory rate Body temperature Systolic And Diastolic Provider Name and Address Organization Details Last Updated DateTime 5 149.86 cm 29.6 kg/m2 24035 g 70 /min 96 % 96 % 16 /min 97.7 [degF] 134/70 mm[Hg] Rhonda Razo MA [facility] 5 11:58:27 Date Recorded Body height Body mass index (BMI) Body weight Respiratory rate Heart rate Oxygen saturation Oxygen saturation in Arterial blood by Pulse oximetry Systolic And Diastolic Provider Name and Address Organization Details Last Updated DateTime 4 149.86 cm 30.7 kg/m2 65786.0 4 g 14 /min 64 /min 98 % 98 % 144/70 mm[Hg] Rhonda Razo MA [facility] 4 13:02:14 Social History Question Answer Notes LastModified by Organizat ion Details LastModified Time Tobacco Smoking Status Former Smoker quit 15 years ago Liyah Rhodes MA [facility] 06/30/2015 10:44:20 Do You Have An Advance Directive? Yes [email or web address] Information not available 06/30/2015 Are You Blind Or Do You Have Difficulty Seeing? No Information not available 10/12/2020 Is Blood Transfusion Acceptable In An Emergency? Yes [email or web address] Information not available 06/30/2015 What Is Your Level Of Caffeine Consumption? Moderate Coffee, Tea [email or web address] Information not available 06/30/2015 How Much Tobacco Do You Chew? None [email or web address] Information not available 06/30/2015 In The 14 Days Before Symptom Onset, Have You Had Close Contact With A Laboratory-confi rmed COVID-19 While That Case Was Ill? No Information not available 10/12/2020 In The 14 Days Before Symptom Onset, Have You Had Close Contact With A Person Who Is Under Investigation For COVID-19 While That Person Was Ill? No Information not available 10/12/2020 Have You Been To An Area Known To Be High Risk For COVID-19? Yes Information not available 10/12/2020 Are You Deaf Or Do You Have Serious Difficulty Hearing? No Information not available 10/12/2020 What Type Of Diet Are You Following? DIABETIC Low Carb Pt Is Diabetic [email or web address] Information not available 06/30/2015 Which Illicit Or Recreational Drugs Have You Used? Pt Denies Information not available 06/30/2015 Education 2 Year College [email or web address] Information not available 06/30/2015 Are There Any Guns Present In Your Home? No Information not available 10/12/2020 Hard Of Hearing Or Deaf In One Or Both Ears? No [email or web address] Information not available 06/30/2015 Legally Blind In One Or Both Eyes? No [email or web address] Information not available 06/30/2015 Live Alone Or With Others? Alone Information not available 06/30/2015 Marital Status Single Informatio n not available 06/30/2015 What Was The Date Of Your Most Recent Tobacco Screening? 01/17/2025 Information not available 01/17/2025 How Many Children Do You Have? 3 [email or web address] Information not available 06/30/2015 Performs Monthly Self-breast Exam? Yes [email or web address] Information not available 06/30/2015 Do You Use Protection During Sex? Usually [email or web address] Information not available 10/05/2015 What Is Your Relationship Status? Single [email or web address] Information not available 06/30/2015 Do You Use Your Seat Belt Or Car Seat Routinely? Yes Information not available 10/12/2020 Seat Belts Used Routinely Yes [email or web address] Information not available 06/30/2015 Are You Sexually Active? No [email or web address] Information not available 06/30/2015 Smoke Alarm In Home Yes [email or web address] Information not available 06/30/2015 Do You Have Smoke And Carbon Monoxide Detectors In Your Home? Yes Information not available 10/12/2020 How Much Tobacco Do You Smoke? No [email or web address] Information not available 06/30/2015 General Stress Level Medium [email or web address] Information not available 10/27/2014 Do You Use Sunscreen Routinely? No [email or web address] Information not available 06/30/2015 Has Tobacco Cessation Counseling Been Provided? No Information not available 11/08/2018 On What Date Was Tobacco Cessation Counseling Provided? 07/17/2019 Manuel Answered No To The Tobacco Cessation Counseling Provided Question On 11/08/2018. Information not available 07/17/2019 Sex: Unknown Functional Status Question Answer Note LastModified by Organizat ion Details LastModified Time Do you use any illicit or recreational drugs? No Information not available 10/12/2020 What is your level of alcohol consumption? None [email or web address] Information not available 06/30/2015 Do you or have you ever used smokeless tobacco? Never used smokeless tobacco Information not available 07/17/2019 Are you currently employed? No retired [email or web address] Information not available 06/30/2015 Are you able to care for yourself independently? Yes Information not available 10/12/2020 What is your occupation? retired [email or web address] Information not available 06/30/2015 Do you or have you ever used e-cigarettes or vape? Never used electronic cigarettes Information not available 07/17/2019 What is your exercise level? Moderate [email or web address] Information not available 06/30/2015 Mental Status None recorded. Family History Relationship Description Onset Age of this Age Resolved Age Notes LastModified by Organization Details LastModified Time Unspecified Relation Malignant neoplasm of breast moms side distan t cousin s [email or web address] Not available 10/05/2015 14:44:45 Medical History Condition Response Coronary Artery Disease N Other Y Atrial Fibrillation N High Blood Pressure Y Breast Cancer N Lung Disease N Depression N COPD N Blood Clots N Breast Problem N Anesthesia Complications N Anxiety Disorder N Muscle, Joint, or Bone Problems N Infertility N Polyps N Acid Reflux (GERD) N Cancer N Stroke N Endometriosis N High Cholesterol Y Liver Disease N Headaches N Thyroid Problems N Kidney or Bladder Problems N GI Problems N Acne N Eating Disorder N Skin Problems N Anemia N Heart Attack ([place]) N Diabetes Y Ovarian Cancer N Blood Transfusions N Seizures/Epilepsy N Urinary Tract Infection Y Abuse/Domestic Violence N Asthma N Allergies N Hepatitis N Heart Disease N Pre-Eclampsia N Heart Failure N Osteoporosis N Gynecological History Statement/Question Response Abnormal Pap N On BCP's at Conception? N STIs/STDs N HPV Vaccine N Most Recent Mammogram Age at Menarche 10 Current Control Method None Age at First Child 20 If Post Menopausal, Age at Menopause 50 Sexually Active? Y Menses Monthly N Date of Last Pap Smear 04/03/2020 Sexual Problems? Y LMP Unknown Desired Control Method None Obstetrics History GPAL:G 4 P 4 0 0 3 Type Value Multiple Births 0 Full Term 4 Induced 0 Premature 0 Living 3 Ectopics 0 Total 4 Immunizations Vaccine Type Date Status Note Provider Nam e and Address Organization Details Recorded Time Influenza, split virus, quadrivalent, preservative 8 completed Not Available [facility] 11/28/2022 22:19:30 Influenza, split virus, quadrivalent, preservative 9 completed Not Available [facility] 11/28/2022 22:19:30 Influenza, split virus, quadrivalent, preservative 0 completed Not Available [facility] hospital 03/21/2023 15:11:22 SARS-COV-2 (COVID-19) vaccine, UNSPECIFIED 1 completed Not Available [facility] hospital 03/21/2023 15:11:22 SARS-COV-2 (COVID-19) vaccine, UNSPECIFIED 1 completed Not Available [facility] hospital 11/28/2022 22:19:31 COVID-19, mRNA, LNP-S, PF, 100 mcg/0.5mL dose or 50 mcg/0.25mL dose 1 completed Not Available Critical access hospital 11/28/2022 22:19:31 Influenza, split virus, quadrivalent, preservative 2 completed Not Available [facility] 11/28/2022 22:19:30 Influenza, split virus, quadrivalent, preservative 6 completed Not Available [facility] 06/29/2019 02:32:31 influenza, unspecified formulation 2 completed Not Available [facility] 11/28/2022 22:19:31 Influenza, high-dose, quadrivalent, PF 0 completed Not Available [facility] 11/28/2022 22:19:30 Influenza, split virus, quadrivalent, PF 8 completed Not Available [facility] 11/28/2022 22:19:31 Influenza, split virus, trivalent, PF 7 completed Not Available [facility] 11/28/2022 22:19:31 Influenza, high-dose, quadrivalent, PF 2 completed Not Available [facility] 11/28/2022 22:19:30 Influenza, high-dose, trivalent, PF 9 completed Not Available [facility] 11/28/2022 22:19:31 COVID-19, mRNA, LNP-S, PF, 100 mcg/0.5mL dose or 50 mcg/0.25mL dose 1 completed Not Available [facility] 11/28/2022 22:19:31 Influenza, adjuvanted, quadrivalent, PF 1 completed Not Available [facility] 11/28/2022 22:19:31 COVID-19, mRNA, LNP-S, PF, 100 mcg/0.5mL dose or 50 mcg/0.25mL dose 2 completed Not Available [facility] 11/28/2022 22:19:31 COVID-19, mRNA, LNP-S, bivalent, PF, 50 mcg/0.5 mL or 25mcg/0.25 mL dose 3 completed Baron Kaur MD Attn: Accounting[address] [place], [address], [place] [facility] 12/21/2022 15:07:14 Influenza, adjuvanted, trivalent, PF 4 completed BRIAN Munoz, [place] [facility] 03/29/2024 12:58:02 Influenza, high-dose, quadrivalent, PF 3 completed Baron Kaur MD Attn: Accounting[address] [place], [address], [facility] - [facility] 03/21/2023 16:26:03 Influenza, split virus, quadrivalent, preservative 5 completed Not Available [facility] 06/29/2019 02:43:08 Influenza, split virus, quadrivalent, preservative 7 completed Not Available [facility] 03/21/2023 15:11:22 zoster live 8 completed Not Available [facility] 11/28/2022 22:19:31 pneumococcal polysaccharide PPV23 2 completed Not Available [facility] 11/28/2022 22:19:31 Pneumococcal conjugate PCV 13 5 completed Not Available [facility] 11/28/2022 22:19:31 pneumococcal polysaccharide PPV23 6 completed Not Available [facility] 11/28/2022 22:19:31 Past Encounters Encounter ID Performer Location Encounter Start Date Encounter Closed Date Diagnosis/Indication Diagnosis SNOMED-CT Code Diagnosis ICD10 Code Diagnosis IMO Codes Diagnosis Note [id number] MD Johanny Chatterjee (Adult Med) [address] [place] [address] [id number] 10/27/2014 11:39:58 10/27/2014 14:10:05 Hand pain 77389304 She has synovial thickening on the dorsal aspect of the left wrist, this is most likely related to her polyarthri tis, she has an appointmen t with her rheumatolo gist. Verruca vulgaris 33933595 Wart like lesions right 1st & 2nd finger as well as the left thumb, they all developed according to her after trauma. (Inoculati on?) Uncontroll ed type 2 diabetes mellitus 478561314 Unclear if she really is taking her Metformin, she will review her meds at home [id number] MD Johanny Chatterjee (Adult Med) [address] [place] [address] [phone] 04/06/2015 11:18:40 04/06/2015 13:57:39 Administration of influenza vaccine 28984625 Z23 Uncontroll ed type 2 diabetes mellitus 044006891 E11.65 Compliant with all her meds Rheumatoid arthritis 698 14348 M06.9 D86.9 Apparently ankle and wrist braces were ordered, she states she was told that this needed to be ordered by her PCP. I have reviewed the consultati on note from the 01/09/2015 visit with her Rheumatolo gist, Dr. Amaya, there is no indication of this in his note. One would think that this should be ordered by the treating physician, I have asked that the [employer] send the request to Dr. Amaya directly. Vitamin D deficiency 347 17317 E55.9 [id number] MD Johanny Burkett (PEDIATRIC UROLOGIST) [address] [place] [address] [phone] 06/30/2015 10:01:27 06/30/2015 12:15:21 Gynecologic examination 15454790 Z01.419 Screening mammography 24 453790 Z12.31 Candidal vulvovaginitis 65240539 B37.3 [id number] MD Johanny Chatterjee (Adult Med) [address] [place] [address] [id number] 09/24/2015 14:58:55 09/25/2015 10:35:58 Uncontrolled type 2 diabetes mellitus 906355537 E11.65 Compliant with all her meds Allergic rhinitis 881623 04 J30.9 Disorder of eye 89923572 4 H57.8 FU with ophthalmol ogy [id number] MD Johanny Burkett (PEDIATRIC UROLOGIST) [address] [place] [address] [phone] 10/05/2015 10:36:39 10/05/2015 14:47:59 Hemorrhoids 63978389 K64.9 [id number] MD Johanny Chatterjee (Adult Med) [address] [place] [address] [phone] 02/26/2016 12:03:01 02/26/2016 13:14:01 Uncontrolled type 2 diabetes mellitus 122307122 E11.65 Uncontroll ed on Tradjenta and Metformin despite compliance with all her meds, I wish there is something else other than the Metformin Add Amaryl, labs were discussed. Administra tion of influenza vaccine 24016996 Z23 [id number] MD Johanny Chatterjee (Adult Med) [address] [place] [address] [phone] 06/28/2016 11:42:53 06/28/2016 17:42:37 Uncontrolled type 2 diabetes mellitus 624097268 E11.65 Uncontroll ed on Tradjenta, Metformin and Amaryl 1mg. Her Hba1c is still 8.3!. I will increase her Amaryl to 2mg Diabetes mellitus 005133 09 E11.9 [id number] MD Johanny Chatterjee (Adult Med) [address] [place] [address] [phone] 11/01/2016 10:45:40 11/01/2016 11:40:12 Uncontrolled type 2 diabetes mellitus 623649530 E11.65 Uncontroll ed on Tradjenta, Metformin and she can no longer tolerate Amaryl. She states that it resulted in headaches, she did check her blood sugar which was high when she had the headache. I will add Jardiance, se were discussed Disorder o f lipid metabolism 232849121 E78.9 [id number] MD Johanny Chatterjee (Adult Med) [address] [place] [address] [phone] 09/06/2017 11:28:25 09/06/2017 13:13:59 Adult health examination 439696857 Z00.01 Uncontroll ed type 2 diabetes mellitus 588225981 E11.65 Sarcoidosis 59512982 D86 .9 Screening for malignant neoplasm of breast 647849523 Z12.31 Immunization refused 275 254166 Z28.20 [id number] MD Johanny Chatterjee (Adult Med) [address] [place] [address] [phone] 10/25/2017 10:29:11 10/25/2017 11:20:57 Uncontrolled type 2 diabetes mellitus 830990689 E11.65 Benign ess ential hypertension 5590724 I10 Normal grief reaction 27 7810096 F43.20 Disorder o f lipid metabolism 710110882 E78.9 Screening for malignant neoplasm of breast 596074350 Z12.31 HIV screening 492071059 Z11.4 [id number] MD Johanny Chatterjee (Adult Med) [address] [place] [address] [phone] 07/17/2018 10:10:07 07/18/2018 08:54:19 Uncontrolled type 2 diabetes mellitus 247412154 E11.65 Screening mammography 24 880294 Z12.31 Cough 20427679 R05 Seasonal a llergic rhinitis 191416664 J30.2 Essential hypertension 07088495 I10 Uncontroll edRecheck in a week [id number] MD Johanny Chatterjee (Adult Med) [address] [place] [address] [phone] 11/08/2018 09:51:08 11/09/2018 08:28:22 Screening for malignant neoplasm of colon 742130843 Z12.11 She apparently had one at ~ 5 years ago Uncontroll ed type 2 diabetes mellitus 640019448 E11.65 Uncontroll ed, her HbA1c does not correlate with her BS readings, she was last seen by Dr Mendenhall in 2017. Essential hypertension 87568839 I10 Uncontroll ed today, she has not taken her HCTZ. She reports normal ambulatory readings and her BP when she came in to have it checked was normal. Menopause present 806617 006 N95.1 She apparently had one at [facility] this year Screening for malignant neoplasm of breast 026365393 Z12.31 She apparently had one at [facility] this year Mammography abnormal 168 463124 R92.8 The MMG report from 09/10/2018 was just received today after a request was made.She apparently had a previous biopsy of the R. breast and was previously under the care of Dr Fontenot.She needs a diagnostic MMG +/- US. [id number] MD Johanny Chatterjee (Adult Med) [address] [place] [address] [phone] 12/19/2018 08:32:41 12/19/2018 14:07:34 Bone density below reference range 940326981 R93.7 She will be seeing Dr Burk, her test done at [facility] suggest a moderate risk of fractures. Uncontroll ed type 2 diabetes mellitus 974874724 E11.65 Uncontroll ed DMShe was started on Basaglar, she states that she was told to only use it for 3 days and discard the rest of the Insulin. Essential hypertension 03971015 I10 Uncontroll ed today, she has taken her HCTZ, I will increase the dose to 25 mg po daily. Noncomplia nce with treatment 4466593 Z91.19 [id number] MD Johanny Chatterjee (Adult Med) [address] [place] [address] [phone] 02/20/2019 10:14:08 02/21/2019 08:42:29 Mammography abnormal 887986881 R92.8 The MMG report from 09/10/2018 was abnormal.S he apparently had a previous biopsy of the R. breast and was previously under the care of Dr Fontenot.She had some tests done and I have requested a note. Uncontroll ed type 2 diabetes mellitus 928622761 E11.65 Uncontroll ed DM Body mass index 30+ - obesity 270852808 Z68.30 Toothache 44698389 K08.8 9 Start Pen V K and get in to see a dentist KOTA [id number] MD Johanny Chatterjee (Adult Med) [address] [place] [address] [phone] 0 07/17/2019 11:50:09 07/18/2019 08:24:09 Disorder of lipid metabolism 479905354 E78.9 Uncontroll ed type 2 diabetes mellitus 574834838 E11.65 Uncontroll ed DM Screening for malignant neoplasm of breast 601141383 Z12.31 She had one at [facility] 10/2018, her orders usually come from her breast surgeon, Dr Fontenot Allergic rhinitis 172540 04 J30.9 [id number] MD Johanny Chatterjee (Adult Med) [address] [place] [address] [phone] 03/04/2020 12:31:23 03/05/2020 08:25:58 Uncontrolled type 2 diabetes mellitus 926629189 E11.65 Uncontroll ed DM Medication monitoring 39 7562194 Z51.81 History of breast biopsy with benign finding 6012149286 91002 Z98.890 She was apparently seen by the surgeon, Dr Yeison Enrique, she states that she had another study and she was cleared Screening for malignant neoplasm of colon 267960120 Z12.11 She had a colonoscop y in 2010 according to preventive health form in her paper chart. [id number] DANIA WYATT (PEDIATRIC UROLOGIST) [address] [place] [address] [id number] 04/03/2020 10:40:41 04/06/2020 08:03:30 Gynecologic examination 41937231 Z01.419 64 y/o F presents for annual exam. No gynecologi c complaints .-clinical breast & pelvic examinatio ns completed today, unremarkab le -cervical cancer screening: last Pap 2016, negative. Pt requests Pap today. Pap performed. If normal, no longer needs routine cervical cancer screening. -screening mammogram up to date (11/2019) -routine nuswab completed, treat as needed -Educated osteoporos is prevention including calcium rich diet, weight bearing exercise. Will start supplement . Venereal d isease screening 474390263 Z11.3 Chronic id iopathic constipation 60387138 K59.04 Chronic constipati on worsened recently due to opioid use after getting teeth pulled. Well-contr olled with suppositor ies. Given education on management . Colonoscop y due next year, referral placed to GI by PCP. Advised to follow up with PCP if worsens. [id number] MD Johanny Chatterjee (Adult Med) [address] [place] [address] [phone] 0 07/01/2020 07:51:08 07/02/2020 08:36:26 Uncontrolled type 2 diabetes mellitus 441451708 E11.65 Uncontroll ed Tigist has an appointmen t with her endocrinol ogist [id number] MD Johanny Chatterjee (Adult Med) [address] [place] [address] [phone] 0 10/12/2020 09:33:12 10/13/2020 10:54:21 Type 2 diabetes mellitus without complication 201394785 E11.9 HBA1C 6.9 08/2020 On Glipizide, Metformin and Basaglar Follow-up visit 43221260 9 Z09 Body mass index 25-29 - overweight 578141471 Z68.28 Screening for malignant neoplasm of breast 880217931 Z12.31 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 Uncontroll ed type 2 diabetes mellitus 060424602 E11.65 Uncontroll ed DMShe was seen by her endocrinol ogistLab [facility] a she only has one arm. Post-traum atic stress disorder 81160545 F43.10 She sees a licensed therapist at work Memory impairment 287620 006 R41.3 General ex amination of patient 410769217 Z00.01 [id number] MD Johanny Chatterjee (Adult Med) [address] [place] [address] [phone] 04/27/2022 12:20:06 04/29/2022 09:32:46 Uncontrolled type 2 diabetes mellitus 360772737 E11.65 HBA1C 11.5 03/24/2022 Uncontroll ed DMShe was seen by her endocrinol ogistLab [facility] a she only has one arm. Screening for malignant neoplasm of colon 319848167 Z12.11 She had a colonoscop y in 2010 according to preventive health form in her paper chart. Allergic rhinitis 934209 04 J30.9 Medication monitoring 39 8544477 Z51.81 Body mass index 30+ - obesity 674807152 Z68.30 [id number] MD Johanny Chatterjee (Adult Med) [address] [place] [address] [phone] 0 09/20/2022 12:12:09 09/21/2022 08:51:59 Screening for malignant neoplasm of breast 373043590 Z12.31 Uncontroll ed type 2 diabetes mellitus 025932659 E11.65 HBA1C 11.5 03/24/2022 Uncontroll ed DMSakbar is seeing by her endocrinol ogistLab [facility] been having issues with her Dexcom meter and will be discussing this with Dr Burk. Upper resp iratory infection 12831448 J06.9 Improving Immunization advised 310 430038 Z71.9 [id number] MD Johanny Chatterjee (Adult Med) [address] [place] [address] [phone] 0 12/21/2022 14:18:28 12/22/2022 12:41:39 Essential hypertension 11879462 I10 HCTZ was previously stopped on her admission to [facility] in 09/2020 Uncontroll ed on Amlodipine Start Losartan Uncontroll ed type 2 diabetes mellitus 063176917 E11.65 HBA1c 9.8 ON 08/24/2022 OV 09/20/2022H BA1C 11.5 03/24/2022 Uncontroll ed DMSakbar is seeing by her endocrinol ogistLab results from [facility] has been having issues with her Dexcom meter and will be discussing this with Dr Burk. [id number] MD Johanny Chatterjee (Adult Med) [address] [place] [address] [phone] 0 03/21/2023 15:10:37 03/24/2023 14:07:49 Administration of influenza vaccine 49034819 Z23 Uncontroll ed type 2 diabetes mellitus 471579921 E11.65 HBA1c 9.8 on 08/24/2022 OV 09/20/2022H BA1C 11.5 03/24/2022 Uncontroll ed DMSakbar is seeing by her endocrinol ogistLab results from [facility] has been having issues with her Dexcom meter and will be discussing this with Dr Burk. Medication monitoring 39 5756761 Z51.81 [id number] MD Johanny Chatterjee (Adult Med) [address] [place] [address] [phone] 0 11/09/2023 12:39:13 11/10/2023 11:46:54 Body mass index 30+ - obesity 767581607 Z68.30 Obesity 926515157 E66.9 Uncontroll ed type 2 diabetes mellitus 615467855 E11.65 HBA1C 8.2% on 08/08/2023E ndocrinolo gist to see as referred OV 03/21/2023 HBA1c 9.8 on 08/24/2022 OV 09/20/2022H BA1C 11.5 03/24/2022 Uncontroll ed DMSakbar is seeing by her endocrinol ogistLab results from [facility] has been having issues with her Dexcom meter and will be discussing this with Dr Burk. Pre-surger y evaluation 595929717 Z01.818 Low risk Immunization advised 310 458290 Z71.9 [id number] MD Johanny Chatterjee (Adult Med) [address] [place] [address] [phone] 0 03/29/2024 12:23:13 04/01/2024 14:38:13 Uncontrolled type 2 diabetes mellitus 782793197 E11.65 Uncontroll ed DM, HBA1C 8.5% on 02/02/2024 reviously she was on Jardiance (Rash), Ozempic (appetite) and Pioglitazo neIncrease lantus to 13 units AM and continue 7 units PM OV 11/09/2023H BA1C 8.2% on 08/08/2023E ndocrinolo gist to see as referred OV 03/21/2023 HBA1c 9.8 on 08/24/2022 OV 09/20/2022H BA1C 11.5 03/24/2022 Uncontroll ed Tigist is seeing by her endocrinol ogistLab results from [facility] has been having issues with her Dexcom meter and will be discussing this with Dr Burk. Pre-surger y evaluation 436714374 Z01.818 Low risk [id number] MD Johanny Chatterjee (Adult Med) [address] [place] [address] [phone] 0 09/13/2024 12:27:48 09/17/2024 12:07:47 Uncontrolled type 2 diabetes mellitus 015285200 E11.65 Uncontroll ed DM, HBA1C 8.3% on 09/12/2024G M for frequent blood sugar monitoring and better diabetic controlInc rease Lantus back to 13 units AM and 7 units PMContinue Glipizide and MetforminF ollow up in 5 weeks OV 03/29/2024 Uncontroll ed DM, HBA1C 8.5% on 02/02/2024 reviously she was on Jardiance (Rash), Ozempic (appetite) and Pioglitazo neIncrease lantus to 13 units AM and continue 7 units PM OV 11/09/2023H BA1C 8.2% on 08/08/2023E ndocrinolo gist to see as referred OV 03/21/2023 HBA1c 9.8 on 08/24/2022 OV 09/20/2022H BA1C 11.5 03/24/2022 Uncontroll ed DMShe is seeing by her endocrinol ogistLab results from [facility] has been having issues with her Dexcom meter and will be discussing this with Dr Burk. History of influenza 789 596808 Z87.09 [id number] MD Johanny Chatterjee (Adult Med) [address] [place] [address] [phone] 0 10/09/2024 11:03:12 10/11/2024 12:42:25 Pruritic rash 76531071 L28.2 531408 Contact dermatitis ?, Ring worm? Fungal? and less likely cellulitis Stop Aloe VeraTerbin afine, side effects were discussedC lotrimazol e-Betameth asone and if there is no improvemen t, she will need to be seen by the dermatolog ist. [id number] MD Johanny Chatterjee (Adult Med) [address] [place] [address] [phone] 0 10/18/2024 12:28:30 10/21/2024 14:43:35 Pruritic rash 95414354 L28.2 881241 Improvemen t noted OV 10/09/2024 ontact dermatitis ?, Ring worm? Fungal? and less likely cellulitis Stop Aloe VeraTerbin afine, side effects were discussedC lotrimazol e-Betameth asone and if there is no improvemen t, she will need to be seen by the dermatolog ist. [id number] MD Johanny Chatterjee (Adult Med) [address] [place] [address] 93672-914 0 01/17/2025 11:28:43 01/20/2025 12:24:32 Uncontrolled type 2 diabetes mellitus 688599651 E11.65 She only has one hand as she is an amputation of the left humerus and needs a CGM to check her blood sugars.CGM neededLabs Note from 12/12/2024Un controlled DM, HBA1C 8.3% on 09/12/2024G M for frequent blood sugar monitoring and better diabetic controlInc rease Lantus back to 13 units AM and 7 units PMContinue Glipizide and MetforminF ollow up in 5 weeks OV 03/29/2024 Uncontroll ed DM, HBA1C 8.5% on 02/02/2024 reviously she was on Jardiance (Rash), Ozempic (appetite) and Pioglitazo neIncrease lantus to 13 units AM and continue 7 units PM OV 11/09/2023H BA1C 8.2% on 08/08/2023E ndocrinolo gist to see as referred OV 03/21/2023 HBA1c 9.8 on 08/24/2022 OV 09/20/2022H BA1C 11.5 03/24/2022 Uncontroll ed Tigist is seeing by her endocrinol ogistLab results from [facility] has been having issues with her Dexcom meter and will be discussing this with Dr Burk. Overweight in adulthood with body mass index of 25 or more but less than 30 795832869 Z68.29 333160 Overweight 049849984 E66 .3 Right bradshaw tid artery stenosis 6234572720 82923 I65.21 648687 DIscussed Vascular calcification 327010363 I65.21 [id number] Note from 11/15/2024Xr ay C spine 10/25/2024 DDD; R. carotid bulb calcificat ions & Emphysema? .US needed History of amputation of left arm 6698198291 6755434 Z89.222 0256690994 Uterine leiomyoma 592684 05 D25.9 29348056 Calcified Fibroid on the Xray done on 10/25/2024G YN Health Concerns Section Related Observation LastModified by Organization Detai ls LastModified Time None Recorded Concern Status LastModified by Organization Details LastModified Time None Recorded Advance Directives Directive Y: Payers Insurance Date Sequence Insurance Name Policy Number Policy Christy Covered Member ID Christy Member ID Guarantor Name 01/17/2025 [facility] (MEDICARE REPLACEMENT/A DVANTAGE - HMO) [id number] Leighton Cleveland [id number] Leighton Cleveland 01/20/2025 1 [facility] (MEDICARE REPLACEMENT/A DVANTAGE - HMO) [id number] Leighton Cleveland [id number] Werobj Cristofer 01/17/2025 1 [place] Leighton Cristofer [id number] Werobj Cristofer 01/17/2025 2 [place] WHEN [place] MEDICARE REPLACEMENT PRIMARY) Leighton Cleveland [id number] Leighton Cleveland 01/17/2025 2 [facility] ON OR AFTER 12/10/20 (MEDICAID REPLACEMENT - HMO) Leighton Cristofer [id number] Leighton Cleveland 01/17/2025 [place] [facility] Leighton Cristofer [id number] Werobj Cristofer 01/17/2025 [place] [facility] Leighton Cristofer [id number] Leighton Cleveland Notes Date Note Type Note Provider Name and Address Organization Details Recorded Time 4 text/html Diabetes F/UReported by PatientHPIFor context, patient reportsnormal range of home blood sugars (in the low 100s),seeing eye doctor regularly, andchecking feet regularly. For associated symptoms, patient reportsno weight gain,no weight loss,no dizziness,no sweats,no headaches,no confusion,no increased thirst,no increased appetite,no increased urination,no blurred vision,no numbness of feet, andno calluses on feet. Medicare Annual Wellness VisitReported by PatientSocial/Behavioral HistoryFor fracture risk, patient reportsprevious musculoskeletal injuriesbut reportsno history of fractures,no recent explained fracture, andno sudden unexplained fractures. For diet and nutrition, patient reportshealthy dietanddiscussed vitamin and supplement use. For physical activity, patient reportsexercises on a regular basis,recent increase in physical activity, andgood physical condition.Mental Status:For depression risk, patient reportsnever feels sad, empty, or tearful,no loss of interest in activities,no significant changes in weight,no sleep disturbances or insomnia,no agitation,no loss of energy,no feelings of worthlessness or guilt,no thoughts of suicide,no history of depression, andno history of mood disorders. For orientation, patient reportsno disorientation to time,no disorientation to date, andno disorientation to place. For concentration and memory, patient reportsno decreased concentrating ability,no memory lapses or loss, anddoes not forget words. For speech/motor difficulties, patient reportsno speech difficulties,no difficulty expressing formulated concepts,no difficulty with fine manipulative tasks,no difficulty writing/copying,no slowed reaction time, anddoes not knock things over when trying to pick them up.Functional AbilityFor vision, patient reportsworse both distance and near. For instrumental activities of daily living, patient reportsunable to do house work without assistance,unable to grocery shop without assistance,unable to manage medications without assistance, andunable to to prepare meals without assistancebut reportsable to manage medications with limited or no assistance,able to manage money with limited or no assistance, andable to use the phone with limited or no assistance. For hearing, patient reportsno loss of hearing. For activities of daily living, patient reportsable to bathe with limited or no assistance,able to contol urination and bowels,able to dress with limited or no assistance,able to feed self with limited or no assistance,able to get out of chair or bed with limited or no assistance,able to groom with limited or no assistance, andable to toilet with limited or no assistance. For falls risk assessment, patient reportsno frequent falls while walking,no fall in the past year,no fall since last visit, andno dizziness/vertigo. For home safety, patient reportsno unsafe dolly hazzards,no unsafe stairs,no unsafe gas appliances,working smoke/co detectors,wears protective head gear for biking/high velocity,use of seatbelts,no vision or hearing loss while driving,has hand bars in the bathroom/shower, andgood lighting in the home.ROS as noted in the HPI I want to see youI will in June, they could not get me in until JuneI am getting ready to have eye surgery againI am getting ready to have cataract surgery on my right eye She has been compliant with her medications and she has an appointment with the electrical project manager. A few months ago she had light headedness, she denies any symptoms at this time She denies any chest pain or SOB and she was just seen by her sap portal consultant Baron Kaur MD Attn: Accounting,[address] [facility], [place], [address], [facility] 03/29/2024 13:39:44 5 text/html Diabetes F/UReported by PatientHPIFor associated symptoms, patient reportsweight loss (10 lbs)but reportsno weight gain,no dizziness,no sweats,no headaches,no confusion,no increased thirst,no increased appetite,no increased urination,no blurred vision,no numbness of feet, andno calluses on feet. For labs, patient reportslast a1c result: 8.3%. For context, patient reportstaking aspirin daily,not missing doses of medications, andno side effects from medications.ROS as noted in the HPI I do see them next monthI still don't have a way to check my blood sugar myself She is an uncontrolled diabetic on Insulin with only one arm, she had a traumatic amputation of the left upper extremity above the elbow. She cannot use a glucometer and lancets to check her blood sugars. A CGM will help her monitor her blood sugars and help her achieve control of her DM. She has an appointment to see the electrical project manager. Fully complaint with all her medications and she apparently had decreased the dose of her Lantus to be on the safe side. Since her last visit, she was diagnosed with Influenza and was treated with Tamiflu. Baron Kaur MD Attn: Accounting,[address] [facility], [place], [address], [facility] 09/13/2024 13:38:41 5 text/html Rash/Skin LesionReported by PatientHPIFor quality, patient reportsitchy,localized, andmultiple. For context, patient reportsscratchingbut reportsno new detergents or skin productsandno one else with similar rash. For location, patient reportslegs. For severity, patient reportsmild. For duration, patient reportshas noted for 1-2 months. For onset/timing, patient reportsabrupt onset. For alleviating factors, patient reportsnothing gives relief. For aggravating factors, patient reportsnothing makes it worse. For associated symptoms, patient reportsno fever,no cold symptoms,no nausea,no vomiting,no diarrhea,no urinary symptoms,no chills,no fatigue, andno change in weight. For treatment history, patient reportsalternative/herbal treatment aloe vera with improvement.ROS as noted in the HPI On both sides She apparently has had a itchy rash on the lower part of both of her legs in the last month, the rash dried up with Aloe vera but then was also erythematous. The erythema has resolved, there was never any ulceration, she cannot recall any localized contact with any object and she does not have any pets. She is however concerned that she may have picked up something from her father's halfway. Baron Kaur MD Attn: Accounting,[address] [place], [address], [facility] 10/09/2024 13:50:27 5 text/html ROS as noted in the HPI Much better Her LE rash is much better Baron Kaur MD Attn: Accounting, [facility], [place], [address], [facility] 10/18/2024 14:08:22 5 text/html ROS as noted in the HPI [place] Ms [place] needs some documentation to support her need for a CGM, she has Diabetes Mellitus for which she is on Insulin and she has a history of am amputation of the left humerus. It will be much more convenient for her to use a CGM to monitoring of her blood sugars. Ideally she should check her blood sugars at least three times a day and PRN if she is symptomatic. In the interim, she had a xray of the cervical spine with an abnormality around the carotid bulb, this prompted a carotid US that was also abnormal. She has never had a TIA or CVA. Baron Kaur MD Attn: Accounting,[address] [facility], [place], [address], [facility] 01/17/2025 14:28:54 OBGyn Episode Ob Episode Information Episode Created Date Number of Fetuses Patient Bloodtype Patient rh Status Prepregnancy Weight lbs Domestic Partner Domestic Partner Phone Father Name Bioinformaticist Status 06/30/19 16 1 CLOSED Fetus Data First Name Last Name Admitted to NICU Weight (g) Sex Living Outcome Pediatric Complications Fetus ID Race Codes Race Delivery Type M Full Term [id number] Timothy Calculation Initial Timothy Date Initial Exam Date Initial Exam Provider Initial Ultrasound Date Last Menstrual Period Date Ultra Sound Weeks Gestation 0 Eighteen To Twenty Week Timothy Update Ultra Sound Date Fundal Height At Umbil Quickening Date Ultra Sound Latest Weeks Gestation Final Timothy Confirmed By Final Timothy Confirmed Date Final Timothy Date Ultra Sound Latest Days Gestation 0 0 Menstrual History Last Menstrual Date Menses Monthly On Bcp Conception Prior Menses Frequency Hcg Plus Date Menarche Onset Age Delivery Information Delivery Date Delivery Type Labor Anesthesia Weeks Gestation Incision Type Labor Labor Length Hrs Delivered By Post Complications Tubal Sterilization Discharge Date Comments 4 40 Discharge Information Feeding Method Contraceptive Method Maternal HG B and HCT Levels Ob Episode Information Episode Created Date Number of Fetuses Patient Bloodtype Patient rh Status Prepregnancy Weight lbs Domestic Partner Domestic Partner Phone Father Name Bioinformaticist Status 06/30/19 16 1 CLOSED Fetus Data First Name Last Name Admitted to NICU Weight (g) Sex Living Outcome Pediatric Complications Fetus ID Race Codes Race Delivery Type M Full Term [id number] Tiomthy Calculation Initial Timothy Date Initial Exam Date Initial Exam Provider Initial Ultrasound Date Last Menstrual Period Date Ultra Sound Weeks Gestation 0 Eighteen To Twenty Week Timothy Update Ultra Sound Date Fundal Height At Umbil Quickening Date Ultra Sound Latest Weeks Gestation Final Timothy Confirmed By Final Timothy Confirmed Date Final Timothy Date Ultra Sound Latest Days Gestation 0 0 Menstrual History Last Menstrual Date Menses Monthly On Bcp Conception Prior Menses Frequency Hcg Plus Date Menarche Onset Age Delivery Information Delivery Date Delivery Type Labor Anesthesia Weeks Gestation Incision Type Labor Labor Length Hrs Delivered By Post Complications Tubal Sterilization Discharge Date Comments 8 40 Discharge Information Feeding Method Contraceptive Method Maternal HG B and HCT Levels Ob Episode Information Episode Created Date Number of Fetuses Patient Bloodtype Patient rh Status Prepregnancy Weight lbs Domestic Partner Domestic Partner Phone Father Name Bioinformaticist Status 06/30/19 16 1 CLOSED Fetus Data First Name Last Name Admitted to NICU Weight (g) Sex Living Outcome Pediatric Complications Fetus ID Race Codes Race Delivery Type M Full Term [id number] Timothy Calculation Initial Timothy Date Initial Exam Date Initial Exam Provider Initial Ultrasound Date Last Menstrual Period Date Ultra Sound Weeks Gestation 0 Eighteen To Twenty Week Timothy Update Ultra Sound Date Fundal Height At Umbil Quickening Date Ultra Sound Latest Weeks Gestation Final Timothy Confirmed By Final Timothy Confirmed Date Final Timothy Date Ultra Sound Latest Days Gestation 0 0 Menstrual History Last Menstrual Date Menses Monthly On Bcp Conception Prior Menses Frequency Hcg Plus Date Menarche Onset Age Delivery Information Delivery Date Delivery Type Labor Anesthesia Weeks Gestation Incision Type Labor Labor Length Hrs Delivered By Post Complications Tubal Sterilization Discharge Date Comments 6 40 Discharge Information Feeding Method Contraceptive Method Maternal HG B and HCT Levels Ob Episode Information Episode Created Date Number of Fetuses Patient Bloodtype Patient rh Status Prepregnancy Weight lbs Domestic Partner Domestic Partner Phone Father Name Bioinformaticist Status 06/30/19 16 1 CLOSED Fetus Data First Name Last Name Admitted to NICU Weight (g) Sex Living Outcome Pediatric Complications Fetus ID Race Codes Race Delivery Type M Full Term [id number] Timothy Calculation Initial Timothy Date Initial Exam Date Initial Exam Provider Initial Ultrasound Date Last Menstrual Period Date Ultra Sound Weeks Gestation 0 Eighteen To Twenty Week Timothy Update Ultra Sound Date Fundal Height At Umbil Quickening Date Ultra Sound Latest Weeks Gestation Final Timothy Confirmed By Final Timothy Confirmed Date Final Timothy Date Ultra Sound Latest Days Gestation 0 0 Menstrual History Last Menstrual Date Menses Monthly On Bcp Conception Prior Menses Frequency Hcg Plus Date Menarche Onset Age Delivery Information Delivery Date Delivery Type Labor Anesthesia Weeks Gestation Incision Type Labor Labor Length Hrs Delivered By Post Complications Tubal Sterilization Discharge Date Comments 4 40 passed a t Discharge Information Feeding Method Contraceptive Method Maternal HG B and HCT Levels
--- OUTSIDE RECORDS SUMMARY | 2025-03-22 14:17 | XMS_ITS | Clinical Summary ---
Author Organization [facility] Address [address] [place] [address] Care Team Providers Care Animal Geneticist Name Role Phone Baron Kaur MD Primary Care Provider Allergies Active Allergy Reactions Criticality Noted Date Comments Codeine Hives,Nausea only Medium 01/04/2012 Tylenol with codeine Glimepiride Headache Low 10/11/2016 Propoxyphene Nausea only,Nausea Only,Other (See comments) High 02/07/2011 Tramadol Rash,Nausea only Medium 01/04/2012 Medications hydrocortisone (ANUSOL-HC) 2.5 % rectal cream Activ e clobetasol (TEMOVATE) 0.05 % cream Active fluconazole (DIFLUCAN) 150 mg tablet TK 1 T PO 1 TIME 0 018 Active fluticasone (FLONASE) 50 mcg/actuation nasal spray 3 018 Active hydroCHLOROthia zide (MICROZIDE) 12.5 mg capsule hydrochlorothiazide 12.5 mg capsule TAKE 1 CAPSULE BY MOUTH EVERY DAY Active PROCTOZONE-HC 2.5 % rectal cream 0 018 Active hydrocortisone 1 % cream 008 Active sodium chloride (OCEAN) 0.65 % nasal spray USE DIRECTED. 009 Active aspirin 81 mg tablet 010 Active nystatin cream 100,000 Units 3 (three) times a day as needed Active AFLURIA QUAD [id number], PF, 60 mcg/0.5 mL syringe 0 10/02/2 018 Active guaiFENesin (ROBITUSSIN) syrup 100 mg/5 mL 10 mL every 4 hours Active metFORMIN XR (GLUCOPHAGE XR) 500 mg 24 hr tablet metformin ER 500 mg tablet,extended release 24 hr Active insulin glargine (BASAGLAR KWIKPEN U-100 INSULIN) 100 unit/mL (3 mL) insulin pen Basaglar KwikPen U-100 Insulin 100 unit/mL (3 mL) subcutaneous Active pen needle, diabetic 31 gauge x 5/16 needle BD Ultra-Fine Short Pen Needle 31 gauge x 5/16 Active glimepiride (AMARYL) 1 mg tablet Active ONETOUCH ULTRA BLUE TEST STRIP strip 11 Active ACCU-CHEK LINETTE PLUS METER misc 1 Active influenza quadrivalent [id number] (FLULAVAL,FLUAR IX) 60 mcg (15 mcg x 4)/0.5 mL syringe Afluria Quad [id number] (PF) 60 mcg (15 mcg x 4)/0.5 mL IM syringe ADM 0.5ML IM UTD Active infliximab (REMICADE IV) Remicade Active ONETOUCH DELICA LANCETS 33 gauge misc 3 (three) times a day 11 Active calcium carbonate (OS-LAKEISHA) 1,250 mg (500 mg elemental) tablet Take 500 mg by mouth Active acetaminophen (TYLENOL) 500 mg tablet Take 2 tablets (1,000 mg total) by mouth 3 (three) times a day Active amLODIPine (NORVASC) 10 mg tablet Take 1 tablet (10 mg total) by mouth daily Active atorvastatin (LIPITOR) 40 mg tablet Take 1 tablet (40 mg total) by mouth nightly Active calcium carbonate-vitam in D3 1,250mg (500mg elemental) - 5 mcg (200 units) per tablet Take 1 tablet by mouth 2 (two) times a day Active docusate sodium (COLACE) 100 mg capsule Take 100 mg by mouth daily Active enoxaparin (LOVENOX) 30 mg/0.3 mL syringe Inject 0.3 mL (30 mg total) under the skin every 12 (twelve) hours Active gabapentin (NEURONTIN) 300 mg capsule Active glipiZIDE (GLUCOTROL) 10 mg tablet Take 1 tablet (10 mg total) by mouth daily before breakfast Active HYDROcodone-jessa taminophen (NORCO) 5-325 mg per tablet Take 1 tablet by mouth every 12 (twelve) hours as needed Active lidocaine (LIDODERM) 5 % Place 1 patch on the skin daily Active polyethylene glycol (MIRALAX) 17 gram/dose powder Take 17 g by mouth daily Active pregabalin (LYRICA) 75 mg capsule Take 1 capsule (75 mg total) by mouth 2 (two) times a day Active semaglutide (Ozempic) 0.25 mg or 0.5 mg(2 mg/1.5 mL) pen injector injection Inject 0.25 mg under the skin once a week Active senna (SENOKOT) 8.6 mg tablet Take 8.6 mg by mouth daily Active insulin glargine (LANTUS) 100 unit/mL (3 mL) pen for injection ADMINISTER 6 UNITS UNDER THE SKIN EVERY DAY DIRECTED Active rosuvastatin (CRESTOR) 10 mg tablet Take 1 tablet (10 mg total) by mouth daily Active glipiZIDE XL (GLUCOTROL XL) 10 mg 24 hr tablet Active blood glucose diagnostic (Accu-Chek Linette Plus test strp) strip Active insulin glargine (BASAGLAR) 100 unit/mL (3 mL) pen for injection Active insulin syringe-needle U-100 0.5 mL 30 gauge x 5/16 syringe USE WITH INSULIN ONCE D Active traMADoL (ULTRAM) 50 mg tablet Active losartan (COZAAR) 25 mg tablet Take 1 tablet (25 mg total) by mouth daily Act robyn HYDROcodone-jessa taminophen (NORCO) 7.5-325 mg per tablet Take 1 tablet by mouth 2 (two) times a day as needed for pain Active blood-glucose meter (ACCU-CHEK LINETTE PLUS METER MISC) USE TO TEST TID Ac tive blood glucose diagnostic (Accu-Chek Linette Plus test strp) strip USE 1 STRIP BID Ac tive pen needle, diabetic (BD Ultra-Fine Mini Pen Needle) 31 gauge x 3/16 needle USE WITH INSULIN INJECTIONS TWICE DAILY Ac tive blood glucose diagnostic (Accu-Chek Linette Plus test strp) strip USE 1 STRIP TWICE DAILY 019 Active aspirin 81 mg capsule 81 mg Active lancets 33 gauge misc 3 (three) times a day Active blood sugar diagnostic (ONETOUCH ULTRA BLUE TEST STRIP MISC) 3 (three) times a day Active ketorolac (ACULAR) 0.5 % ophthalmic solution INSTILL 1 DROP INTO LEFT EYE ONCE DAILY STARTING 2 DAYS PRIOR TO SURGERY Active polymyxin B-trimethoprim (POLYTRIM) ophthalmic solution INSTILL 1 DROP IN LEFT EYE THREE TIMES DAILY. START 2 DAYS BEFORE SURGERY Active prednisoLONE acetate (PRED FORTE) 1 % ophthalmic suspension SHAKE LIQUID AND INSTILL 1 DROP IN LEFT EYE THREE TIMES DAILY. START AFTER SURGERY Activ e folic acid (FOLVITE) 1 mg tablet Take 2 tablets (2 mg total) by mouth daily 180 tablet 3 024 Active methotrexate 2.5 mg tabletIndicatio ns:Rheumatoid Arthritis Take 8 tablets (20 mg total) by mouth every 7 days 96 tablet 1 025 Active oseltamivir (TAMIFLU) 75 mg capsule Take 1 capsule (75 mg total) by mouth 2 (two) times a day 025 Active clotrimazole-be tamethasone (LOTRISONE) cream APPLY TOPICALLY TO THE AFFECTED AREA TWICE DAILY FOR 7 DAYS DIRECTED FOR RASH 025 Active terbinafine (LamiSIL) 250 mg tablet TAKE 1 TABLET BY MOUTH EVERY DAY FOR 14 DAYS DIRECTED 025 Active Active Problems Problem Noted Date Diagnosed Date Carpal tunnel syndrome of right wrist 12/20/2021 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 Complication of amputation stump of left upper e xtremity 12/20/2021 Type 2 diabetes mellitus 02/14/2019 Low bone density 12/19/2018 Sarcoidosis 08/14/2018 High risk medication use 08/14/2018 Type II diabetes mellitus, uncontrolled 08/15/19 Essential hypertension 07/17/2018 Rheumatoid arthritis of mult iple sites without rheumatoid factor 10/28/2017 Seronegative rheumatoid arthritis of hand 2017 Polyarthropathy 03/14/2017 Arthralgia 07/22/2016 Vitamin D deficiency 07/22/2016 Lymphadenopathy 07/22/2016 Encounters Date Type Department Care Team Description 02/18/2025 8:30 AM CDT Infusion [facility] [address] [place] [address] Sarcoidosis (Primary Dx) 01/06/2025 9:30 AM CDT Infusion [facility] [address] [place] [address] Sarcoidosis (Primary Dx) 01/02/2025 Telephone [facility] [address] [place] [address] [place] [id number] Zulay Lester CMA from Last 3 Months Immunizations Immunization Administration Dates Next Due Influenza, Quadrivalent, Spl it, Intramuscular 04/12/2018,03/18/2017,02/26/2016,04/06 Influenza, Quadrivalent, Spl it, Preservative Free, Intramuscular 03/13/2018 Pneumococcal Conjugate PCV 13 05/01/2015 Pneumococcal Polysaccharide PPV23 08/24/2015, ZOSTER LIVE 08/10/2017 ZOSTER Recombinant 11/13/2017,08/18/2017 Surgical History Surgery Date Site/Laterality Comments SINUS SURGERY Sinus Surgery - (Added by TW Conv) EYE SURGERY Medical History Medical History Date Comments Arthritis Hypertension Diabetes mellitus Family History Medical History Relation Name Comments Alzheimer's disease Father Arthritis Father Family history of arthritis - (Added by TW Conv) Arthritis Mother Family history of arthritis - (Added by TW Conv) Relation Name Status Comments Father Alive Mother Social History Tobacco Use Types Packs/Day Years Used Date Smoking Tobacco: Former Smokeless Tobacco: Never Tobacco Cessation:Counseling Given: Not Answered Alcohol Use Standard Drinks/Week Comments Yes 0 (1 standard drink = 0.6 oz pur e alcohol) socially Hunger Vital Sign Answer Date Recorded Within the past 12 months, y ou worried that your food would run out before you got the money to buy more. Never true 01/07/20 25 Within the past 12 months, t he food you bought just didn't last and you didn't have money to get more. Never true 01/06/2025 Personal Safety Answer Date Recorded Have you ever been in or are you currently in a harmful physical or emotional relationship or is someone making you feel afraid or unsafe? Denies 02/18/2025 Comments Unknown Sex and Gender Information Value Date Recorded Sex Assigned at Not on file Legal Sex Female 1:17 AM CROP [employer]OUT Gender Identity Female 01/30/2018 11:34 AM CDT Sexual Orientation Not on file Obstetrics History Last Filed Vital Signs Vital Sign Reading Time Taken Comments Blood Pressure 176/77 02/18/2025 10:50 AM CDT Pulse 65 02/18/2025 10:50 AM CDT Temperature 35.9 C (96.7 F) 02/18/2025 8:09 AM CDT Respiratory Rate 18 10/24/2024 1:20 PM CDT Oxygen Saturation 95% 02/18/2025 10:50 AM CDT Inhaled Oxygen Concentration - - Weight 66.7 kg (147 lb) 02/18/2025 8:09 AM CDT Height 152.4 cm (5') 01/06/2025 9:36 AM CDT Body Mass Index 28.71 01/06/2025 9:36 AM CDT Plan of Treatment Health Maintenance Due Date Last Done Comments Albumin Creatinine Ratio, Urine 1955 Colon Cancer Screening-Colonoscopy 1955 Depression Screening 1955 Dilated Eye Exam 1955 Foot Exam 1955 Lipid Panel 1955 DTaP/Tdap/Td Vaccine (1 - Tdap) 1966 Well Visit 65+ 2018 Fall Risk Assessment 02/05/2019 02/05/2018 Pneumococcal vaccine 65+ (4 of 4 - PCV20 or PCV21) 08/23/2020 08/24/2015, 05/01/2015, 11/28/2011 Osteoporosis Screening-Bone Density Scan 09/03/2020 09/03/2018 Hemoglobin A1C 02/28/2021 08/28/2020 Covid-19 Vaccine (5 - 2024-2 6 season) 2025 06/14/2021, 04/12/2021, 09/18/2020, Additional history exists Influenza Vaccine (#1) 2025 4, 03/12/2022, 06/12/2021, Additional history exists eGFR 09/24/2025 09/24/2024, 02/11, 06/20/2023, Additional history exists Breast Cancer Screening-Mammogram 01/08/2026 01/08/2025, 01/08/2025, 11/15/2023, Additional history exists Zoster Vaccine Completed 11/13/2017, 02/2018, 08/10/2017 Hepatitis B Screening Completed 01/08/2021 Hepatitis C Screening Completed 01/08/2021 Procedures Procedure Name Priority Date/Time Associated Diagnosis Comments COMPREHENSIVE METABOLIC PANEL Routine 09/24/2024 9:09 AM CDT Sarcoidosis HEPATITIS C ANTIBODY Routine 01/08/2021 11:32 AM CDT Rheumatoid arthritis with negative rheumatoid factor, involving unspecified site (HCC) DEXA AXIAL SKELETON BONE DENSITY 1 OR MORE SITES Schedule Routine, Read Routine (OP Routine) 09/03/2018 8:34 AM CDT Age-related osteoporosis without current pathological fracture Rheumatoid arthritis with positive rheumatoid factor, involving unspecified site (HCC) High risk medication use from Last 3 Months or Most Recently Relevant to Health Maintenance Results * (ABNORMAL) Comprehensive metabolic panel (09/24/2024 9:09 AM CDT) Total Protein 8.4 6.1 - 8.4 g/dL [facility] Albumin 4.0 3.5 - 5.2 g/dL [facility] Calcium 9.2 8.6 - 10.3 mg/dL [facility] BUN 8 7 - 23 mg/dL [facility] Total Bilirubin 0.53 0.20 - 1.40 mg/dL [facility] Alk Phos, Total 99 35 - 129 IU/L [facility] AST (SGOT) 25 11 - 47 IU/L [facility] ALT (SGPT) 15 6 - 53 IU/L [facility] Creatinine 0.54(L) 0.60 - 1.10 mg/dL [facility] Sodium 141 135 - 145 mmol/L [facility] Potassium 3.6 3.3 - 5.1 mmol/L [facility] Chloride 102 95 - 107 mmol/L [facility] CO2 Content 25 21 - 29 mmol/L [facility] Glucose 114(H) 64 - 99 mg/dL [facility] Comment: NONFASTING GLUCOSE RANGE = 64-199 mg/dL FASTING GLUCOSE 64 - 99 = NORMAL FASTING GLUCOSE 100 - 125 = IMPAIRED FASTING GLUCOSE FASTING GLUCOSE >=126 = PROVISIONAL DIAGNOSIS OF DIABETES eGFR >90.0 >60.0 mL/min/1.7 3 m2 [facility] Blood 09/24/2024 9:09 AM CDT 09/24/2024 9:27 AM CDT Terrance Mendoza MD LAB BLOOD ORDERABLES F inal Result [facility] * Hepatitis C antibody (01/08/2021 11:32 AM CDT) Pathologist [facility] Hep C Ab Nonreactive Nonreactive [facility] Comment:Antibodies to HCV no t detected. Does NOT exclude the possibility of recent exposure to HCV. Blood specimen (specimen) 01/08/2021 11:32 AM CDT 01/08/2021 1:22 PM CDT Ramon Hayes MD LAB MICROBI OLOGY - GENERAL ORDERABLES Edited Result - Final Performing Organization Address City/State/[facility] Co de Phone Number [facility] Department [place] [address] * Dexa Axial Skeleton Bone Density 1 or 2 Site (09/03/2018 8:34 AM CDT) Anatomical Region Laterality Modality Body N/A Radiographic Paty ging Narrative 09/04/2018 9:37 AM CDT 4 Patient Name: Leighton Cleveland Date of : 1955 Date of scan: 09/03/2018 Bone mineral density was performed on a [employer] Densitometer. Machine Cross-calibration and Precision studies have been performed with a least significant change of 0.024 g/cm at the spine, 0.020 g/cm at the total proximal femur, and 0.014g/cm at the forearm. HISTORY: This is a 63 y.o. postmenopausal female with a history of rheumatoid arthritis. Currently on treatment with glucocorticoids and vitamin D. With a current complaint of back, neck, arm and leg pain. History of tobacco use: Social History Tobacco Use Smoking Status Former Smoker INDICATIONS: Menopause status, treatment monitoring, currently on 5 mg of glucocorticoids for the past 20 year(s) with dosage variations >5mg and screening for osteoporosis. FINDINGS: BONE MINERAL DENSITY OF THE LUMBAR SPINE Bone Mineral Density (BMD) of the lumbar spine was measured from L1-L4 and the average density was calculated to be 0.891 gm/cm. This corresponds to a T-score standard deviations from the mean of young adults of -1.4. There is no previous study available for comparison. BONE MINERAL DENSITY OF THE PROXIMAL FEMUR Bone Mineral Density (BMD) of the left hip total was found to be 0.873 gm/cm2. This corresponds to a T-score standard deviations from the mean of young adults of -0.6. Femoral neck is 0.701 gm/cm2 with a T-score of -1.3. There is no previous study available for comparison. SUMMARY:Bone mineral density shows evidence of low bone mass in the hip and spine and moderately increased fracture risk. ADDITIONAL COMMENTS: If the patient has a history of a fragility fracture, a fracture that occurred with trauma equivalent to a fall from a standing position or less, then the diagnosis is osteoporosis. The risk of osteoporotic fracture increases approximately 2-fold for each 1.0 SD decrease in T-score. However, low bone density is not the only risk factor for fracture. Other factors include patient s age, previous osteoporotic fracture or prior fracture as an adult, loss of height of greater than 2 inches, corticosteroid use, risk of falling, risk of injury, and family history of osteoporosis. Not everyone with low bone mineral density has osteoporosis. Osteomalacia and other metabolic bone disorders should also be considered where indicated. Patients who have osteoporosis should be evaluated for specific diseases and conditions (secondary causes) that may cause or contribute to bone loss. Consider repeating this study in 1-2 years to assess the patient s response to treatment, if applicable. It is recommended that any follow up exam be performed on the same machine if possible for better accuracy. DEFINITIONS: Osteoporosis: BMD at or below -2.5 T-score Osteopenia (low bone mass): BMD between -1.0 and-2.5 T-score. The Bone Health Program adopts the following WHO definitions: Osteoporosis: BMD below -2.5 S.D. as compared to the BMD of young normal adults. Osteopenia or Low Bone Mass: BMD between -1.0 and -2.5 S.D. below the BMD of young normal adults. Normal Bone Density: BMD equal to or greater than -1.0 S.D. as compared to the BMD of young normal adults. References: 1) Delbert, Annals of Internal Medicine 114(11): 919-923 (1990) 2) Emily, Lancet 341 : 72-75 (1992) 3) Kyle, Journal Bone and Mineral Research 7(6): 633-8 (1991) 4) Jong, Journal Bone and Mineral Research 8(10):1227-33 (1992) The history and data sections of the bone mineral density scan were prepared by Bety DE LA ROSA) who is accredited by the International Society of Clinical Densitometry. The overall patient assessment and scan interpretation were performed by Ant Rocha M.D. who is certified by the International Society of Clinical Densitometry. [id number] Keyonna Rojas MD PhD IMG DXA PROCEDURES Final Re sult from Last 3 Months or Most Recently Relevant to Health Maintenance Insurance [facility] [employer] [facility] Address: [address] [place] [address] [employer] MEDICARE [facility] Address: [address] [address] [place] [address] [facility] Address: [address] [address] [place] [address] [facility] MEDICARE [employer] [facility] Address: [address] [address] [place] [address] [employer] Care Teams Animal Geneticist Relationship Specialty Start Date End Date Baron Kaur MD [address] [place] [id number] PCP - General 08/18/17
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
--- OUTSIDE RECORDS SUMMARY | 2025-03-22 14:17 | XMS_ITS | Data Portability ---
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 Plan of Treatment Reminders Order Date Submit Date Provider Last Modified By Organization Details Last Modified Time Details Appointments None record ed. Lab None record ed. Referral None record ed. Procedures None record ed. Surgeries None record ed. Imaging None record ed. Medication Orders None record ed. Patient TargetsNo targets recorded. Patient InstructionsNo instructions recorded. Reason for Referral None Reported. Results Created Date Observation Date Name Description Value Unit Range Abnormal Flag Note LastModifiedBy Organization Detail LastModifiedTime 12/02/19 22 12/01/2021 LIPID PANEL LDL cholesterol, calculated 101 mg/dL 0-130 NIH GIOVANNI NSUS REPOR T RECOM MENDA TIONS FOR LDL: ADULT CHILD LOW RISK <130 <110 (OPTI MAL LDL) <100 ----- BORDE RLINE : 130-1 59 ----- HIGH RISK: >160 >130 A TRIGL YCERI DE RESUL T >400 INVAL IDATE S THE CALCU LATIO N FOR LDL FRACT IONAT ION - THE LDL RESUL T WILL NOT BE REPOR SUSI. Not Available [facility] (Lab) [address] [facility], [place], [address], 12/01/2021 14:43:06 12/02/19 22 12/01/2021 LIPID PANEL cholesterol 199 mg/dL 140-19 9 NIH GIOVANNI NSUS RECOM MENDA TION FOR EYAL STERO L: ADULT CHILD LOW RISK: <200 <170 BORDE RLINE : <200- 239 ----- HIGH RISK: >240 >200 Not Available [facility] (Lab) [address] [place], [address], 12/01/2021 14:43:06 12/02/19 22 12/01/2021 LIPID PANEL triglyceride s 152 mg/dL 0-150 high NIH GIOVANNI NSUS REPOR T RECOM MENDA TION FOR TRIGL YCERI CANDACE: ADULT CHILD LOW RISK: <150 ----- BODER LINE: 150-1 99 ----- HIGH RISK: >200 ----- Not Available [facility] (Lab) [address] [place], [address], 12/01/2021 14:43:06 12/02/19 22 12/01/2021 LIPID PANEL HDL cholesterol 68 mg/dL 40- Not Available [facility] (Lab) [address] [place], [address], 12/01/2021 14:43:06 12/02/19 22 12/01/2021 TSH thyroid-stim ulating hormone 0.884 uIU/m L 0.465- 4.680 Not Available [facility] (Lab) [address] [place], [address], 12/01/2021 13:19:44 12/02/19 22 12/01/2021 T4 FREE free T4 1.18 NG/dL 0.78-2 .19 Not Available [facility] (Lab) [address] [place], [address], 12/01/2021 13:19:19 08/25/19 23 08/24/2022 MICRO ALBUM N RNDM W/CRE AT RATIO ur creat 214.31 mg/dL REFER ENCE RANGE NOT ESTAB LISHE D FOR RANDO M URINE CREAT ININE Not Available [facility] (Lab) [address] [place], [address], 08/24/2022 14:33:57 08/25/19 23 08/24/2022 MICRO ALBUM N RNDM W/CRE AT RATIO microalbumin , urine 66.4 mg/L 0.0-16 .6 high Not Available [facility] (Lab) [address] [place], [address], 08/24/2022 14:33:57 08/25/19 23 08/24/2022 MICRO ALBUM N RNDM W/CRE AT RATIO microalbumin /creatinine ratio 31 mcg/m g 0-29 high THE AMERI CAN DIABE KAYLA ASSOC IATIO N DEFIN ES ABNOR MALIT IES IN ALBUM IN EXCRE TION FOLLO WS: CATEG ORY RESUL T (MCG/ MG CREAT ININE ) VITO L <30 MICRO ALBUM INURI A 30-29 9 CLINI MAXIMO ALBUM INURI A > OR = 300 THE ADA RECOM MENDS THAT 2 OF 2 SPECI MENS COLLE CTED WITHI N A 3- TO 6-MON TH PERIO D BE ABNOR MAL BEFOR E CONSI MIKE G A PATIE NT TO HAVE CROSS ED ONE OF THESE DIAGN OSTIC THRES HOLDS . REFER ENCE: DIABE KAYLA CARE, VOL. 26: S94-S , 2002 Not Available [facility] (Lab) [address] [place], [address], 08/24/2022 14:33:57 08/25/19 23 08/24/2022 COMPR EHENS TRINA METAB OLIC PANEL sodium 138 mmol/ L 137-14 5 Not Available [facility] (Lab) [address] [place], [address], 08/24/2022 14:39:11 08/25/19 23 08/24/2022 COMPR EHENS TRINA METAB OLIC PANEL potassium 4.0 mmol/ L 3.5-5. 1 Not Available [facility] (Lab) [address] [place], [address], 08/24/2022 14:39:11 08/25/19 23 08/24/2022 COMPR EHENS TRINA METAB OLIC PANEL chloride 101 mmol/ L 98-107 Not Available [facility] (Lab) [address] [place], [address], 08/24/2022 14:39:11 08/25/19 23 08/24/2022 COMPR EHENS TRINA METAB OLIC PANEL carbon dioxide 27 mmol/ L 22-30 Not Available [facility] (Lab) [address] [place], [address], 08/24/2022 14:39:11 08/25/19 23 08/24/2022 COMPR EHENS TRINA METAB OLIC PANEL anion gap 14.0 mmol/ L 14-22 Not Available [facility] (Lab) [address] [place], [address], 08/24/2022 14:39:11 08/25/19 23 08/24/2022 COMPR EHENS TRINA METAB OLIC PANEL glucose 210 mg/dL 70-99 high Not Available [facility] (Lab) [address] [place], [address], 08/24/2022 14:39:11 08/25/19 23 08/24/2022 COMPR EHENS TRINA METAB OLIC PANEL BUN 9 mg/dL 8-19 Not Available [facility] (Lab) [address] [place], [address], 08/24/2022 14:39:11 08/25/19 23 08/24/2022 COMPR EHENS TRINA METAB OLIC PANEL creatinine 0.53 mg/dL 0.66-1 .25 low Not Available [facility] (Lab) [address] [place], [address], 08/24/2022 14:39:11 08/25/19 23 08/24/2022 COMPR EHENS TRINA METAB OLIC PANEL GFR >60 Refer ence Range : [place] ge GFR Healt hy Adult : >60 mL/mi n/1.7 3 m2 Chron ic Kidne y Disea se: 15-60 mL/mi n/1.7 3 m2 Kidne y Failu re: <15/m L/min /1.73 m2 www.n iddk. nih.g ov The MDRD study equat ion has not been valid ated in child ana <18 years of age; pregn ant women ; the elder ly >85 years of age; or in some racia l or ethni c subgr oups, such as Hispa nics. Outsi de the valid ated jefferson eters , estim ated GFR is less accur ate, requi ring clini maximo judgm ent on a case- by-ca se basis . Clini maximo inter preta tion for other races and ages must be made by the clini chery. The MDRD study equat ion has not been valid ated for the evalu ation of serum creat inine relat ed to nutri shiv l statu s or medic ation usage . For perso ns <18 years of age, a pedia tric GFR calcu lator is avail able on the [facility] websi te: https ://edilia w.concepcion stoner.o rg/pr ofess ional s/kdo qi/gf r_cal culat or Not Available [facility] (Lab) [address] [place], [address], 08/24/2022 14:39:11 08/25/19 23 08/24/2022 COMPR EHENS TRINA METAB OLIC PANEL alkaline phosphatase 114 U/L 38-126 Not Available [facility] (Lab) [address] [place], [address], 08/24/2022 14:39:11 08/25/19 23 08/24/2022 COMPR EHENS TRINA METAB OLIC PANEL alanine aminotransfe rase 21 U/L 0-35 Not Available [facility] (Lab) [address] [place], [address], 08/24/2022 14:39:11 08/25/19 23 08/24/2022 COMPR EHENS TRINA METAB OLIC PANEL aspartate aminotransfe rase 31 U/L 15-37 Not Available [facility] (Lab) [address] [place], [address], 08/24/2022 14:39:11 08/25/19 23 08/24/2022 COMPR EHENS TRINA METAB OLIC PANEL bilirubin, total 1.10 mg/dL 0.20-1 .30 Not Available [facility] (Lab) [address] [place], [address], 08/24/2022 14:39:11 08/25/19 23 08/24/2022 COMPR EHENS TRINA METAB OLIC PANEL calcium 9.6 mg/dL 8.4-10 .2 Not Available [facility] (Lab) [address] [place], [address], 08/24/2022 14:39:11 08/25/19 23 08/24/2022 COMPR EHENS TRINA METAB OLIC PANEL total protein 8.2 g/dL 6.3-8. 2 Not Available [facility] (Lab) [address] [place], [address], 08/24/2022 14:39:11 08/25/19 23 08/24/2022 COMPR EHENS TRINA METAB OLIC PANEL albumin 4.6 g/dL 3.0-4. 4 high Not Available [facility] (Lab) [address] [place], [address], 08/24/2022 14:39:11 08/25/19 23 08/24/2022 COMPR EHENS TRINA METAB OLIC PANEL globulin 3.6 g/dL 2.6-4. 2 Not Available [facility] (Lab) [address] [place], [address], 08/24/2022 14:39:11 08/25/19 23 08/24/2022 COMPR EHENS TRINA METAB OLIC PANEL A/G ratio 1.3 ratio 1.0-2. 0 Not Available [facility] (Lab) [address] [place], [address], 08/24/2022 14:39:11 08/25/19 23 08/24/2022 LIPID PANEL cholesterol 179 mg/dL 140-19 9 NIH GIOVANNI NSUS RECOM MENDA TION FOR EYAL STERO L: ADULT CHILD LOW RISK: <200 <170 BORDE RLINE : <200- 239 ----- HIGH RISK: >240 >200 Not Available [facility] (Lab) [address] [place], [address], 08/24/2022 14:39:22 08/25/19 23 08/24/2022 LIPID PANEL triglyceride s 163 mg/dL 0-150 high NIH GIOVANNI NSUS REPOR T RECOM MENDA TION FOR TRIGL YCERI CANDACE: ADULT CHILD LOW RISK: <150 ----- BODER LINE: 150-1 99 ----- HIGH RISK: >200 ----- Not Available [facility] (Lab) [address] [place], [address], 08/24/2022 14:39:22 08/25/19 23 08/24/2022 LIPID PANEL HDL cholesterol 57 mg/dL 40- Not Available [facility] (Lab) [address] [place], [address], 08/24/2022 14:39:22 08/25/19 23 08/24/2022 LIPID PANEL LDL cholesterol, calculated 89 mg/dL 0-130 NIH GIOVANNI NSUS REPOR T RECOM MENDA TIONS FOR LDL: ADULT CHILD LOW RISK <130 <110 (OPTI MAL LDL) <100 ----- BORDE RLINE : 130-1 59 ----- HIGH RISK: >160 >130 A TRIGL YCERI DE RESUL T >400 INVAL IDATE S THE CALCU LATIO N FOR LDL FRACT IONAT ION - THE LDL RESUL T WILL NOT BE REPOR SUSI. Not Available [facility] (Lab) [address] [place], [address], 08/24/2022 14:39:22 08/25/19 23 08/24/2022 T4 FREE free T4 1.19 NG/dL 0.78-2 .19 Not Available [facility] (Lab) [address] [place], [address], 08/24/2022 14:52:40 08/25/1908/24/2022 TSH thyroid-stim ulating hormone 0.848 uIU/m L 0.465- 4.680 Not Available [facility] (Lab) [address] [place], [address], 08/24/2022 14:56:03 08/25/19 23 08/24/2022 HEMOG LOBIN A1C HA1C 9.3 % 4.0-6. 0 high Diabe kayla Scree qasim Crite tila: <5.7% Consi stent with absen ce of diabe kayla 5.7-6 .4% Consi stent with incre ased risk for diabe kayla (pred iabet es) >OR=6 .5% Consi stent with diabe kayla REFER ENCE: Diabe kayla Care 2016, 39(Torres ppl.1 ):s13 -s22 Not Available [facility] (Lab) [address] [place], [address], 08/24/2022 16:31:15 03/09/20 22 04/01/2022 XR, foot No observ ation record ed. [id number] [address] [place], [address], 08/10/2022 01:33:19 Result Notes None recorded. Problems Name Problem SNOMED Code Status Onset Date Resolution Date Notes Provider Name and Address Organization Details Recorded Time Diabetes mellitus 04040325 Active Not Available [facility] 3 01:11:11 Type 2 diabetes mellitus 02636076 Active 2018 Not Available [facility] 3 01:11:10 Pain in left foot 7185451510316 07 Active 2021 Not Available [facility] 3 01:11:10 Dyslipidem ia 605062310 Active 2021 Not Available [facility] 3 01:11:10 Uncontroll ed type 2 diabetes mellitus 028991879 Active 2021 Not Available [facility] 3 01:11:10 Foot pain 16882455 Active 2021 Not Available [facility] 3 01:11:11 Problem Notes None recorded. Procedures Surgical History Date Name Laterality Status Provider Name and Address Organization Details Recorded Time amputation of upper limb completed Not Available [facility] 08/10/2022 00:55:17 Imaging Results None recorded. Procedure Notes None recorded. Medical Equipment None Reported. Allergies Allergen ID Allergen Name Allergen Category Reaction Reaction Severity Criticality Documentation Date Start Date Code Code System Note Provider Name and Address Organization Details Recorded Time 2698 propoxyph steven hydrochlo ride medicatio n Not available Not available Not available 08/10/2022 66015 RxNorm Not Available [facility] 3 01:32:20 24643 codeine medicatio n Not available Not available Not available 01/27/2023 2670 RxNorm Malou Gardner RN null, [place] - S [place] [facility] 3 12:58:04 Medications Name Sig Start Date Stop Date Status Note LastModified by Organization Details LastModified Time prednisone 10 mg tablet 10/15 completed Not Available Not Available Not Available fluconazole 150 mg tablet TK 1 T PO 1 TIME 10/15 completed Not Available Not Available Not Available hydrocodone 5 mg-acetamin ophen 325 mg tablet TAKE 1 TABLET BY MOUTH TWICE DAILY NEEDED active Not Available Not Available No t Available glipizide ER 10 mg tablet, extended release 24 hr TAKE 1 TABLET BY MOUTH EVERY DAY WITH A MEAL 01/27 completed Not Available Not Available Not Available prednisone 20 mg tablet take as needed 10/15 completed Not Available Not Available Not Available penicillin V potassium 500 mg tablet TK 1 T PO Q 8 H FOR 7 DAYS UTD 10/15 completed Not Available Not Available Not Available acetaminoph en 300 mg-codeine 30 mg tablet TAKE 1 TABLET BY MOUTH EVERY 8 HOURS NEEDED 05/13 completed Not Available Not Available Not Available peg-electro lyte solution 420 gram oral solution MIX AND DRINK DIRECTED active Not Available Not Available No t Available tramadol 50 mg tablet TAKE 2 TABLETS BY MOUTH EVERY 6-8 HOURS NEEDED 01/27 completed Not Available Not Available Not Available guaifenesin 100 mg/5 mL oral liquid TK 10 ML PO Q 4 H 10/15 completed Not Available Not Available Not Available glimepiride 1 mg tablet TAKE 2 TABLETS BY MOUTH TWICE DAILY BEFORE MEALS 10/15 completed Not Available Not Available Not Available methotrexat e sodium 2.5 mg tablet TAKE 8 TABLETS BY MOUTH ONCE A WEEK active Not Available Not Available No t Available amlodipine 10 mg tablet TAKE 1 TABLET BY MOUTH EVERY DAY DIRECTED 01/27 completed Not Available Not Available Not Available nystatin 100,000 unit/gram topical cream ALEXX EXT AA BID active Not Available Not Available No t Available promethazin e 25 mg tablet TAKE 1/2 TABLET BY MOUTH EVERY 6 HOURS NEEDED FOR NAUSEA active Not Available Not Available No t Available losartan 25 mg tablet TAKE 1 TABLET BY MOUTH ONCE DAILY active Not Available Not Available No t Available hydrochloro thiazide 12.5 mg capsule TK 1 C PO QD active Not Available Not Available No t Available gabapentin 300 mg capsule TAKE 3 CAPSULES BY MOUTH THREE TIMES DAILY NEEDED 01/27 completed Not Available Not Available Not Available folic acid 1 mg tablet active Not Available Not Available Not Available hydrochloro thiazide 25 mg tablet 10/15 completed Not Available Not Available Not Available methylpredn isolone 4 mg tablets in a dose pack 02/14 completed Not Available Not Available Not Available fluticasone propionate 50 mcg/actuati on nasal spray,suspe nsion SHAKE LIQUID AND USE 2 SPRAYS IN EACH NOSTRIL EVERY DAY DIRECTED active Not Available Not Available No t Available metformin ER 500 mg tablet,exte nded release 24 hr TAKE 4 TABLETS BY MOUTH EVERY DAY active Not Available Not Available No t Available rosuvastati n 10 mg tablet TAKE 1 TABLET BY MOUTH EVERY DAY active Not Available Not Available No t Available BD Ultra-Fine Mini Pen Needle 31 gauge x 3/16 USE EVERY DAY active Not Available Not Available No t Available pregabalin 75 mg capsule TAKE 1 CAPSULE BY MOUTH TWICE DAILY NEEDED active Not Available Not Available No t Available BD Ultra-Fine Short Pen Needle 31 gauge x 5/16 USE ONCE DAILY WITH INSULIN active Not Available Not Available No t Available Oysco 500/D 500 mg-5 mcg (200 unit) tablet TAKE 1 TABLET BY MOUTH TWICE DAILY 01/27 completed Not Available Not Available Not Available Lantus Solostar U-100 Insulin 100 unit/mL (3 mL) subcutaneou s pen ADMINISTE R 8 UNITS UNDER THE SKIN TWICE DAILY active Not Available Not Available No t Available OneTouch Delica Lancets 33 gauge TEST TID active Not Available Not Available Not Available Tradjenta 5 mg tablet TK 1 T PO QD UTD 02/14 completed Not Available Not Available Not Available Accu-Chek Linette Plus test strips USE 1 STRIP BID active Not Available Not Available No t Available Accu-Chek Linette Plus Meter USE TO TEST TID active Not Available Not Available No t Available Basaglar KwikPen U-100 Insulin 2 units 01/27 completed Not Available Not Available Not Available Ozempic 1 mg/dose (2 mg/1.5 mL) subcutaneou s pen injector INJECT 1 MG UNDER THE SKIN Q WK AC 10/15 completed Not Available Not Available Not Available OneTouch Ultra Blue Test Strip TEST TID active Not Available Not Available Not Available Afluria Quad (PF) 60 mcg (15 mcg x 4)/0.5 mL IM syringe ADM 0.5ML IM UTD active Not Available Not Available No t Available Fluzone High-Dose (PF) 180 mcg/0.5 mL intramuscul ar syringe ADM 0.5ML IM UTD 01/27 completed Not Available Not Available Not Available Vitals Date Recorded Body temperature Provider Name a nd Address Organization Details Last Updated DateTime 09/02/2021 98 [degF] Not Available [facility] 3 01:06:09 Date Recorded Body mass index (BMI) Body height Oxygen saturation Oxygen saturation in Arterial blood by Pulse oximetry Heart rate Body temperature Body weight Systolic And Diastolic Provider Name and Address Organization Details Last Updated DateTime 2 29.9 kg/m2 152.4 cm 100 % 100 % 83 /min 98 [degF] 41280.6 3 g 125/75 mm[Hg] Not Available [facility] 3 01:06:08 Date Recorded Body height Body mass index (BMI) Body weight Body temperature Respiratory rate Heart rate Systolic And Diastolic Provider Name and Address Organization Details Last Updated DateTime 3 152.4 cm 29.4 kg/m2 32288.0 1 g 98 [degF] 14 /min 62 /min 156/72 mm[Hg] Malou Gardner RN [place] - S [place] [employer] [facility] 3 12:57:05 Date Recorded Body mass index (BMI) Body height Body weight Provider Name and Address Organization Details Last Updated DateTime 04/01/2022 29.9 kg/m2 152.4 cm 81953.63 g Not Available [facility] 08/10/2022 01:06:09 Social History Question Answer Notes LastModified by Organizat ion Details LastModified Time Tobacco Smoking Status Former Smoker quit 20 + years ago Not Available [facility] 08/10/2022 00:53:18 Are You Blind Or Do You Have Difficulty Seeing? No [id number] Information not available 08/10/2022 What Is Your Level Of Caffeine Consumption? Moderate [id number] Information not available 08/10/2022 In The 14 Days Before Symptom Onset, Have You Had Close Contact With A Laboratory-confir med COVID-19 While That Case Was Ill? No [id number] Information not available 08/10/2022 In The 14 Days Before Symptom Onset, Have You Had Close Contact With A Person Who Is Under Investigation For COVID-19 While That Person Was Ill? No [id number] Information not available 08/10/2022 Are You Deaf Or Do You Have Serious Difficulty Hearing? No [id number] Information not available 08/10/2022 What Type Of Diet Are You Following? REGULAR [id number].[id number] 1035 Information not available 08/10/2022 Which Illicit Or Recreational Drugs Have You Used? None [id number].[id number] 0446 Information not available 08/10/2022 What Is Your Relationship Status? Single [id number].[id number] Information not available 08/10/2022 Have You Recently Traveled Abroad? No [id number].[id number] 6063 Information not available 08/10/2022 Do You Have Difficulty Walking Or Climbing Stairs? Yes Cane MIGRATION.[id number] 8436 Information not available 08/10/2022 Do You Have Any Dietary Restrictions? No [id number].[id number] 2831 Information not available 08/10/2022 Sex: Female Functional Status Question Answer Note LastModified by Organizat ion Details LastModified Time Do you use any illicit or recreational drugs? No [id number] Information not available 08/10/2022 What is your level of alcohol consumption? None [id number].[id number] Information not available 08/10/2022 Do you have transportation difficulties? No [id number] 4065 Information not available 08/10/2022 Are you able to walk independently without assistance or assistive devices? YESASSIST cane MIGRATION.[id number] 5882 Information not available 08/10/2022 Do you have difficulty doing errands alone? No MIGRATION.[id number] 3634 Information not available 08/10/2022 Are you able to care for yourself independently? Yes MIGRATION.[id number] 8367 Information not available 08/10/2022 What is your occupation? retired/disabl ed MIGRATION.[id number] 4485 Information not available 08/10/2022 Do you have difficulty dressing, bathing, grooming, or toileting? No MIGRATION.[id number] 8658 Information not available 08/10/2022 Do you or have you ever used e-cigarettes or vape? Never used electronic cigarettes MIGRATION.[id number] 2826 Information not available 08/10/2022 Mental Status Question Answer Note LastModified by Organizat ion Details LastModified Time Do you have difficulty concentrating, remembering or making decisions? No [id number] Information not available 08/10/2022 Family History Relationship Description Onset Age of this Age Resolved Age Notes LastModified by Organization Details LastModified Time Mother Diabetes mellitus [id number] Not available 08/10/2022 00:55:27 Brother Diabetes mellitus [id number] Not available 08/10/2022 00:55:27 Sister Diabetes mellitus [id number] Not available 08/10/2022 00:55:27 Medical History Condition Response SKIN PROBLEMS Y DIABETES, TYPE Y ARTHRITIS Y EYE PROBLEMS Y AUTOIMMUNE DISEASE Y ANEMIA/BLOOD DISORDER Y Gynecological HistoryNo gynecological history recorded. Obstetrics History GPAL:G 0 P 0 0 0 0 Past Encounters Encounter ID Performer Location Encounter Start Date Encounter Closed Date Diagnosis/Indication Diagnosis SNOMED-CT Code Diagnosis ICD10 Code Diagnosis IMO Codes Diagnosis Note [id number] Sherice Rider MD _EMANUEL_Brenda IGRATION_ DEFAULT_1 _1 , 10/15/2020 00:00:00 01/11/2021 22:13:13 [id number] Sherice Rider MD _EMANUEL_Brenda IGRATION_ DEFAULT_1 _1 , 05/13/2021 00:00:00 05/13/2021 15:17:35 [id number] Sherice Rider MD [facility] [place] [address] [place] [address] 08/09/2021 00:00:00 08/09/2021 14:47:59 [id number] Sherice Rider MD _EMANUEL_Brenda IGRATION_ DEFAULT_1 _1 , 09/02/2021 00:00:00 09/02/2021 21:34:02 [id number] [facility] _ATHENA_M IGRATION_ DEFAULT_1 _1 , 12/23/2021 00:00:00 12/23/2021 13:22:56 [id number] [facility] _ATHENA_M IGRATION_ DEFAULT_1 _1 , 04/01/2022 00:00:00 04/03/2022 14:18:18 [id number] Sherice Rider MD [facility] [place] [address] [place] [address] 01/27/2023 12:48:45 01/27/2023 15:07:18 Uncontrolled type 2 diabetes mellitus 206186172 E11.65 Per patient her PCP recently obtained A1C in 7% range- these labs were not sent to our clinic for review- last seen in 2021-uriel march on lantus 10 units in the morning and 20 units at bedtime and patient aware she can self titrate by 2 units every 3 days until fasting glucose 90-130 mg/dL. Continue metformin for insulin sensitizat ion. I had a very thorough discussion regarding diabetes and complicati ons of diabetes. Risks, benefits and side effects of all medication s and therapy up to and including were discussed in detail with patient. This included not following physician recommenda tions. Patient is alert and oriented times four. Patient made their own informed and educated decision regarding diabetic care and control. Dyslipidemia 082485793 E 78.5 Continue statin therapy for lipid control. Spent up to 25 minutes preparing to see the patient (eg, review of tests), obtaining and/or reviewing separately obtained history, performing a medically appropriat e examinatio n and evaluation , counseling and educating the patient, ordering medication s, tests, along with documentin g clinical informatio n in the electronic health record, independen tly interpreti ng results and communicat ing results to the patient. Patient can be followed by PCP - she/he is aware of my resignatio n and last day of March 24. If needed his/her PCP can refer patient to another endocrinol ogist in the area. All questions /concerns answered and refills necessary at visit today. Health Concerns Section Related Observation LastModified by Organization Detai ls LastModified Time None Recorded Concern Status LastModified by Organization Details LastModified Time None Recorded Advance Directives Directive None Recorded Payers Insurance Date Sequence Insurance Name Policy Number Policy Christy Covered Member ID Christy Member ID Guarantor Name 01/24/2023 1 [facility] (MEDICARE REPLACEMENT/AD VANTAGE - PPO) [id number] Leighton Cleveland [id number] Leighton Cleveland 01/27/2023 2 [facility] - DOS ON OR AFTER 20 (MEDICAID REPLACEMENT - HMO) Leighton Cleveland [id number] Leighton Cleveland Notes Date Note Type Note Provider Name and Address Organization Details Recorded Time 01/27/2023 text/html ROS as noted in the HPI 67 yo female comes in for follow up in management of poorly controlled type 2 DM (A1C of 9.3%) and dyslipidemia. last seen in December 2021 at that time we had patient increase lantus to 7 units in morning and 8 units at bedtime and increase by 1 unit every 3 days until fasting glucose 90-130 mg/dL.We had patient continue on metformin for insulin sensitization along with glipizide. As far as her treatment for her diabetes she is taking lantus 10 units in the morning and 20 units at bedtime. She was on jardiance and did not tolerate well- she is now on a new medication- just for the past month- she cannot remember what it is called. we continued rosuvastatin 20 mg daily at bedtime. Her sugars are running aroundAM fasting from 140-160 mg/dL She has a dexcom sensor and she needs the reader- she will be getting this in the mail soon. 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 She is not taking glipizide anymore and just on metformin. Per patient her a1c was around 7% range. labs from 09/01:a1c 9.3%TSH of 0.848 uIU/mlFT4 of 1.19 ng/dL179/163/57/89gluco se 210 mg/dLCr normalLFT normalmicroalbumin 31 ug/mg Sherice Rider MD [address] [facility], [facility] [address], [place], [address], [place] - [facility] 01/27/2023 14:50:43 OBGyn Episode No OBEpisode recorded.
--- OUTSIDE RECORDS SUMMARY | 2025-03-22 14:18 | XMS_ITS | Clinical Summary ---
Author Organization [facility] Address [address] [place] [address] Care Team Providers Care Traffic Controller Cable Name Role Phone Baron Pena MD Primary Care Provider Encounters Date Type Department Care Team Description 01/08/2025 1:20 PM CDT - 01/08/2025 11:59 PM CDT Hospital Encounter [facility] [address] Baron Pena MD Discharge Disposition: Home or Self Care (Routine Discharge) 01/08/2025 1:00 PM CDT - 01/08/2025 1:19 PM CDT Hospital Encounter [facility] [place] [address] Baron Pena MD Discharge Disposition: Home or Self Care (Routine Discharge) 01/08/2025 Travel from Last 3 Months Family History Medical History Relation Comments Breast Cancer Other Relation Status Comments Other Alive Social History Tobacco Use Types Packs/Day Years Used Date Smoking Tobacco: Never Assessed Comments No Sex and Gender Information Value Date Recorded Sex Assigned at Not on file Legal Sex Female 9:41 PM CDT Gender Identity Not on file Sexual Orientation Not on file Plan of Treatment Health Maintenance Due Date Last Done Comments Colorectal Cancer Screening Colonoscopy (10 Years) 1955 Hepatitis C 1971 DTaP, Tdap and Td Vaccines (1 - Tdap) 1972 Annual Medicare Wellness Visit 2018 COVID-19 Vaccine ( season) 2025 Influenza Adult (#1) 2025 03/12/2019, 04/12/2018, 03/12/2018, Additional history exists Mammogram Screening 01/08/2027 01/08/2025, 09/28/2021, 11/11/2019, Additional history exists RSV Immunization or 60+ Years (1 - 1-dose 75+ series) 2028 Pneumococcal Vaccine: 50+ Years Completed 08/24/2015, 05/01/2015, 11/28/2011 Zoster Vaccines Completed 11/13/2017, 02/2018, 08/10/2017 Dexa Scan (General) Completed 09/03/2018, 9 Meningococcal B Vaccine Aged Out No l onger eligible based on patient's age to complete this topic Meningococcal Vaccine Aged Out No barbara pia eligible based on patient's age to complete this topic RSV Immunizations Under 20 Months Aged Out No longer eligible based on patient's age to complete this topic Procedures Procedure Name Priority Date/Time Associated Diagnosis Comments MG SCREENING W FLAQUITO NADYA DIGI Routine 01/08/2025 2:23 PM CDT Encounter for screening mammogram for malignant neoplasm of breast USV CAROTID DUPLEX NADYA Routine 01/08/2025 2:15 PM CDT Occlusion and stenosis of right carotid artery from Last 3 Months Results * MG SCREENING W FLAQUITO NADYA DIGI (01/08/2025 2:23 PM CDT) Anatomical Region Laterality Modality Breast Bilateral Mammography 01/08/2025 4:17 PM CDT Impressions 01/08/2025 4:20 PM CDT ===== IMPRESSION: ===== 1. Stable mammographic appearance with no new findings to suggest malignancy in either breast. Assessment: ACR BI-RADS 2 - BENIGN FINDING(S) Recommendation: 1:Routine Screening Bilateral Comments: Ordered By: BARON PENA Interpreted By: Prasad Riojas, 01/08/2025 4:17 PM Narrative 01/08/2025 4:20 PM CDT [facility] [address] [place] [address] EXAMINATION: Digital bilateral screening mammogram with 3-D tomosynthesis EXAM DATE/TIME: 01/08/2025 2:12 PM REASON FOR EXAM: Screening Benign right-sided biopsy in 2010. COMPARISON: 11/11/2019. 09/28/2021 Technique: Digital screening mammography of both breasts was performed in addition to 3-D Tomosynthesis technique. This study was read with the assistance of a computer-aided detection system. Tissue density: There are scattered areas of fibroglandular density. Findings: Stable postsurgical change in right breast.. There is no new focal asymmetry, dominant mass lesion, area of skin thickening, or cluster of suspicious appearing calcifications in either breast to suggest malignancy. us Baron Pena MD MAMMO Final Result * USV CAROTID DUPLEX NADYA (01/08/2025 2:15 PM CDT) Anatomical Region Laterality Modality Neck Vascular Ultraso und 01/08/2025 1:24 PM CDT Narrative 01/12/2025 8:49 PM CDT CAROTID ARTERY DUPLEX IMAGING VASCULAR LAB Pat.Name: LEIGHTON CLEVELAND Pat.ID: [id number] .Date: 01/08/2025 Dorene.: [id number] JEAN Tamayo Exam Time: 1:24:00 PM Study Type:BLAKE VS Duplex Carotid BI Age: 12 1955,69Y Sex: F Sonogrphr: Carter Zuniga RDMS, RVT History / Clinical:rt carotid arter stenosis, calcification rt carotid artery Procedures: Taylor scale, Color Doppler imaging, Doppler Spectral Analysis Race: B ++++++++++++++++++++++++++++++++++++ SUMMARY: ++++++++++++++++++++++++++++++++++++ [facility] Carotid Stenosis Criteria 50-69% = PSV 180-230 and/or Ratio 2.0 - 4.0 >70% = PSV >230 and Ratio >4.0 or EDV >100 Stent Criteria >80% = PSV >340 and Ratio >4.0 Right side: The right bifurcation-internal carotid artery has moderate plaque. Internal carotid maximum velocity is 186 cm/s, with a ratio of 2.05 . The common carotid artery has no plaque present. The external carotid artery has moderate plaque proximally. Vertebral artery flow is antegrade. No defined ulceration noted. Left side: The left bifurcation-internal carotid artery has mild plaque. Internal carotid maximum velocity is 98 cm/s , with a ratio of 1 . The common carotid artery has no plaque present. The external carotid artery has mild plaque proximally. Vertebral artery flow is antegrade. No defined ulceration noted. CONCLUSION: The right internal carotid shows moderate plaque and a 50-69% stenosis. Right vertebral artery is antegrade. No evidence of ulceration. The left internal carotid shows mild plaque and a <50% stenosis. Left vertebral artery is antegrade. No evidence of ulceration. ++++++++++++++++++++++++++++++++++++ MEASUREMENTS: ++++++++++++++++++++++++++++++++++++ DOPPLER Right Prox CCA Prox CCA PSV 120 cm/s Right Dist CCA Dist CCA PSV 90.8 cm/s Right Prox ICA Prox ICA PSV 186 cm/s Prox ICA EDV 31 cm/s Right Mid ICA Mid ICA PSV 90 cm/s Mid ICA EDV 18 cm/s Right Dist ICA Dist ICA PSV 86.5 cm/s Dist ICA EDV 19.7 cm/s Right Prox ECA Prox ECA PSV 194 cm/s Right Vertebral Vertebral PSV 45.2 cm/s Right ICA/CCA RATIO ICA/CCA RATIO P 2.05 Left Prox CCA Prox CCA PSV 124 cm/s Left Dist CCA Dist CCA PSV 98.4 cm/s Left Prox ICA Prox ICA PSV 85.5 cm/s Prox ICA EDV 18.2 cm/s Left Mid ICA Mid ICA PSV 78.1 cm/s Mid ICA EDV 18.2 cm/s Left Dist ICA Dist ICA PSV 98.4 cm/s Dist ICA EDV 24.6 cm/s Left Prox ECA Prox ECA PSV 89.8 cm/s Left Vertebral Vertebral PSV 70.6 cm/s Left ICA/CCA RATIO ICA/CCA RATIO P 1 <Electronic Signature> 01/12/2025 08:49 PM Marky Vale M.D. Procedure Note Marky Vale MD - 01/12/2025 CAROTID ARTERY DUPLEX IMAGING VASCULAR LAB Pat.Name: LEIGHTON CLEVELAND Pat.ID: [id number] .Date: 01/08/2025 Dorene.: [id number] JEAN Tamayo Exam Time: 1:24:00 PM Study Type:BLAKE VS Duplex Carotid BI Age: 12 1955,69Y Sex: F Sonogrphr: Carter Zuniga RDMS, RVT History / Clinical:rt carotid arter stenosis, calcification rt carotid artery Procedures: Taylor scale, Color Doppler imaging, Doppler Spectral Analysis Race: B ++++++++++++++++++++++++++++++++++++ SUMMARY: ++++++++++++++++++++++++++++++++++++ [facility] Carotid Stenosis Criteria 50-69% = PSV 180-230 and/or Ratio 2.0 - 4.0 >70% = PSV >230 and Ratio >4.0 or EDV >100 Stent Criteria >80% = PSV >340 and Ratio >4.0 Right side: The right bifurcation-internal carotid artery has moderate plaque. Internal carotid maximum velocity is 186 cm/s, with a ratio of 2.05 . The common carotid artery has no plaque present. The external carotid artery has moderate plaque proximally. Vertebral artery flow is antegrade. No defined ulceration noted. Left side: The left bifurcation-internal carotid artery has mild plaque. Internal carotid maximum velocity is 98 cm/s , with a ratio of 1 . The common carotid artery has no plaque present. The external carotid artery has mild plaque proximally. Vertebral artery flow is antegrade. No defined ulceration noted. CONCLUSION: The right internal carotid shows moderate plaque and a 50-69% stenosis. Right vertebral artery is antegrade. No evidence of ulceration. The left internal carotid shows mild plaque and a <50% stenosis. Left vertebral artery is antegrade. No evidence of ulceration. ++++++++++++++++++++++++++++++++++++ MEASUREMENTS: ++++++++++++++++++++++++++++++++++++ DOPPLER Right Prox CCA Prox CCA PSV 120 cm/s Right Dist CCA Dist CCA PSV 90.8 cm/s Right Prox ICA Prox ICA PSV 186 cm/s Prox ICA EDV 31 cm/s Right Mid ICA Mid ICA PSV 90 cm/s Mid ICA EDV 18 cm/s Right Dist ICA Dist ICA PSV 86.5 cm/s Dist ICA EDV 19.7 cm/s Right Prox ECA Prox ECA PSV 194 cm/s Right Vertebral Vertebral PSV 45.2 cm/s Right ICA/CCA RATIO ICA/CCA RATIO P 2.05 Left Prox CCA Prox CCA PSV 124 cm/s Left Dist CCA Dist CCA PSV 98.4 cm/s Left Prox ICA Prox ICA PSV 85.5 cm/s Prox ICA EDV 18.2 cm/s Left Mid ICA Mid ICA PSV 78.1 cm/s Mid ICA EDV 18.2 cm/s Left Dist ICA Dist ICA PSV 98.4 cm/s Dist ICA EDV 24.6 cm/s Left Prox ECA Prox ECA PSV 89.8 cm/s Left Vertebral Vertebral PSV 70.6 cm/s Left ICA/CCA RATIO ICA/CCA RATIO P 1 <Electronic Signature> 01/12/2025 08:49 PM Marky Vale M.D. Baron Pena MD VASC Final Result from Last 3 Months [facility] [address] MEDICARE Care Teams Traffic Controller Cable Relationship Specialty Start Date End Date Baron Pena MD PCP - General INTERNAL MEDICINE 08/30/19
[2025-03-22 14:37] VITALS: BP 149/84; PULSE 91; RESP 18; TEMP 37.3; O2SAT 98
--- OUTSIDE RECORDS SUMMARY | 2025-03-22 14:56 | XMS_ITS | Clinical Summary ---
Author Organization [facility] Address [address] [place] [address] Care Team Providers Care Nutritionist Name Role Phone Baron Kaur MD Primary [...] a day as needed Active AFLURIA QUAD 2534-9028, PF, 60 mcg/0.5 mL syringe 0 10/02/2 [...] PLUS METER misc 1 Active influenza quadrivalent 2228-1638 (FLULAVAL,FLUAR IX) 60 mcg (15 mcg x 4)/0.5 mL syringe Afluria Quad 5410-7763 (PF) 60 mcg (15 mcg x 4)/0.5 [...] Team Description 02/18/2025 8:30 AM CDT [facility] [address] [place] [address] Sarcoidosis (Primary Dx) 01/06/2025 9:30 AM CDT [facility] [address] [place] [address] Sarcoidosis (Primary Dx) 01/02/[address] 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 Comment:Antibodies to HCV no t detected. Does NOT exclude the possibility of recent exposure to HCV. Blood specimen (specimen) 01/08/2021 11:32 AM CDT 01/08/2021 1:22 PM CDT Ramon Hayes MD LAB MICROBI OLOGY - GENERAL ORDERABLES Edited Result - Final Performing Organization Address City/State/[facility] Co de Phone Number [facility] Department [place] [address] * Dexa Axial Skeleton Bone Density 1 [...] by the International Society of Clinical Densitometry. [id number] Keyonna Rojas MD PhD IMG DXA PROCEDURES Final Re sult from Last 3 Months or Most Recently Relevant to Health Maintenance Insurance [facility] MEDICARE ADVANTAGE [facility] MEDICARE Address: [address] [address] [place] [address] [facility] MEDICARE Address: [address] [address] [place] [address] [facility] MEDICARE ADVANTAGE [facility] MEDICARE Address: [address] [address] [place] [address] IDPA Care Teams Nutritionist Relationship Specialty Start Date End Date Baron Kaur MD [address] [place] [phone] PCP - General 08/18/17
--- OUTSIDE RECORDS SUMMARY | 2025-03-22 14:56 | XMS_ITS | Clinical Summary ---
Author Organization [facility] Address [address] [place] [address] Care Team Providers Care News Videotape Editor Name Role Phone Baron Kaur MD Primary Care Provider Source Comments [facility],non-owned Affiliates and Associated Physician Practices is amultiple site organization consisting of ambulatory clinics and hospital sitesin [place], [place], [place] and [place]. This disclosure is being madepursuant to the Care Everywhere program and may not contain all information available regarding this patient. Last updated 18.[facility] Allergies Active Allergy Reactions Criticality Noted Date Comments Codeine Shortness of Breath,Rash High 08/30/2020 Propoxyphene Shortness of Breath High 08/30/2020 Medications * Be aware that medications may not be up to date on this document. Alwaysverify current medications with the patient. 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 Interventions: Medical Devices Implanted Type Area Dental Laboratory Technician Apprentice Device Identifier Shelf Expiration Date Model / Serial / Lot Compression Screw Implanted:Qty: 1 on 09/04/2020 at [facility] Left: Humerus Luis Trauma [id number] / / [id number] Humeral Nail Implanted:Qty: 1 on 09/04/2020 at [facility] Left: Humerus [place] Trauma [id number] / / Locking Screw, Partially Threaded Implanted:Qty: 1 on 09/04/2020 at [facility] Left: Humerus [place] Trauma [id number] / / [id number] Screw 4mm 34mm Ft Lck Ti Strl T2 Nail Implanted:Qty: 1 on 09/04/2020 by Karen Parra MD at [facility] Left: Humerus [place] 07/12/2023 [id number] / / [id number] Screw 4mm 28mm Ft Lck Ti Strl T2 Nail Implanted:Qty: 1 on 09/04/2020 by Karen Parra MD at [facility] Left: Humerus Luis [employer] 09/09/2024 [id number] / / [id number] Screw 4mm 24mm Ft Lck Ti Strl T2 Nail Implanted:Qty: 1 on 09/04/2020 by Karen Parra MD at [facility] Left: Humerus Luis [employer] [id number] / / Explanted Type Area Dental Laboratory Technician Apprentice Device Identifier Shelf Expiration Date Model / Serial / Lot Wire K 2mm 228mm Troc Pnt Ss Prl Plate Explanted:Qty: 1 on 09/04/2020 at [facility] Left: Humerus [employer] Nephew Trauma [id number] / / Procedures Procedure Name Priority Date/Time Associated Diagnosis Comments GLUCOSE - POINT OF CARE Routine 09/16/2020 8:05 AM CDT from Last 3 Months or Most Recently Relevant to Health Maintenance Results * (ABNORMAL) GLUCOSE - POINT OF CARE (09/16/2020 8:05 AM CDT) [facility] Glucose WB/POC 166(H) 70 - 115 mg/dL 09/16/2020 8:[address] [facility] Specimen Type Arterial/C apillary 09/16/2020 8:24 AM CDT [facility] Blood BLOOD SPECIMEN / Unknown 09/16/2020 8:05 AM CDT 09/16/2020 8:24 AM CDT us Zack Henry MD LAB - POINT OF CARE ORDERA BLES Final Result [facility] [address] [place] [address], [place] [phone] from Last 3 Months or Most Recently Relevant to Health Maintenance Insurance [facility] MANAGED MEDICARE [facility] MEDICARE MEDICAID - OUT OF STATE UHC MANAGED MEDICARE ADV MANAGED MEDICARE ADV Advance Directives * Full Code (Latest Code Status on File) Date Activated Date Inactivated Comments 08/28/2020 5:16 PM 09/16/2020 11:19 AM Care Teams News Videotape Editor Relationship Specialty [place] [address] [place] [phone] PCP - General Internal Medicine 08/31/20
--- OUTSIDE RECORDS SUMMARY | 2025-03-22 14:56 | XMS_ITS | Clinical Summary ---
Author Organization [facility] Address [address] [place] [address] Care Team Providers Care Oven Dauber Name Role Phone Baron Pena MD Primary Care Provider [phone] Encounters Date Type Department Care Team Description 01/08/2025 1:20 PM CDT - 01/08/2025 11:59 PM CDT Hospital Encounter [facility] [address] Baron Pena MD Discharge Disposition: Home or Self Care (Routine Discharge) 01/08/2025 1:00 PM CDT - 01/08/2025 1:19 PM CDT Hospital Encounter [facility] [place] [address] Baron Pena MD Discharge Disposition: Home or [...] Associated Diagnosis Comments MG SCREENING W FLAQUITO NAYDA DIGI Routine 01/08/2025 2:23 PM CDT Encounter [...] 4:17 PM Narrative 01/08/2025 4:20 PM CDT [facility] [address] [place] [address] EXAMINATION: Digital bilateral screening mammogram with 3-D [...] IMAGING VASCULAR LAB Pat.Name: LEIGHTON CLEVELAND Pat.ID: [id number] .Date: 01/08/2025 Dorene.: [id number] JEAN Tamayo Exam Time: 1:24:00 PM Study Type:BLAKE VS Duplex Carotid BI Age: 12 1955,69Y Sex: F Sonogrphr: Carter Zuniga RDMS, RVT History / Clinical:rt carotid arter stenosis, calcification rt carotid artery Procedures: Taylor scale, Color Doppler imaging, Doppler Spectral Analysis Race: B ++++++++++++++++++++++++++++++++++++ SUMMARY: ++++++++++++++++++++++++++++++++++++ [facility] Carotid Stenosis Criteria 50-69% = PSV [...] IMAGING VASCULAR LAB Pat.Name: LEIGHTON CLEVELAND Pat.ID: [id number] .Date: 01/08/2025 Dorene.: [id number] JEAN Tamayo Exam Time: 1:24:00 PM Study Type:BLAEK VS Duplex Carotid BI Age: 12 1955,69Y Sex: F Sonogrphr: Carter Zuniga RDMS, RVT History / Clinical:rt carotid arter stenosis, calcification rt carotid artery Procedures: Taylor scale, Color Doppler imaging, Doppler Spectral Analysis Race: B ++++++++++++++++++++++++++++++++++++ SUMMARY: ++++++++++++++++++++++++++++++++++++ [facility] Carotid Stenosis Criteria 50-69% = PSV [...] Result from Last 3 Months [facility] [address] MEDICARE Care Teams Oven Dauber Relationship Specialty Start Date End Date Baron Pena MD PCP - General INTERNAL MEDICINE 08/30/19
--- OUTSIDE RECORDS SUMMARY | 2025-03-22 14:56 | XMS_ITS | Encounter Summary ---
Author Organization [facility] Address [address] [place] [address] Phone Care Team Providers Care Rf Design Engineer Name Role Phone Baron Kaur MD Primary Care Provider Encounter Details Date Type Department Care Team (Late st Contact Info) Description 07/05/2022 Telephone [facility] Endocrinology Metabolism and Lipid [address] 5th [place] [address] [place] [phone] Jorge Gonzales Social History Tobacco Use Types Packs/Day Years Used Date Smoking Tobacco: Former Smokeless Tobacco: Never Alcohol Use Standard Drinks/Week Comments Yes 0 (1 standard drink = 0.6 oz pur e alcohol) socially Comments Unknown Sex and Gender Information Value Date Recorded Sex Assigned at Not on file 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
--- NOTE | 2025-03-22 15:16 | ED.SKABFB ---
HPI - Skin/Abscess/Foreign Bdy General Chief complaint: Skin/Abscess/Foreign Body Stated complaint: rash Time Seen by Provider: 03/22/25 14:48 History of Present Illness HPI narrative: Patient is a 69-year-old female who presents to the ER with concerns of a rash to her arms and legs. She reports she received her flu shot 2 weeks ago. Patient endorses experiencing flu-like symptoms for a week afterwards. She reports she recently noticed a rash on her arms and legs that woke her up out of her sleep. Patient reports the most significant symptom associated with the rash is itching. She endorses a history of diabetes, chronic sinus infections, rheumatoid arthritis. Patient reports she is on methotrexate and gets infusions to treat her RA. She denies any shortness a breath, difficulty breathing, throat swelling, lip swelling or drooling. Related Data Allergies Allergy/AdvReac Type Severity Reaction Status Date / Time acetaminophen (From [place]) Allergy Swelling Verified 03/22/25 14:17 hydrocodone (From [place]) Allergy Swelling Verified 03/22/25 14:17 propoxyphene (From [place]) Allergy Swelling Verified 03/22/25 14:17 Review of Systems Review of Systems: All systems reviewed & are unremarkable except as noted in HPI and below PMFSH Family History Family History Other Cerebrovascular accident Family history of arthritis Family history of cardiovascular disease Family history of congestive heart failure Family history of glaucoma Family history of kidney disease Social History Social History Smoking status: Never smoker Alcohol intake: current Exam Narrative: GENERAL: Well appearing, well-nourished, non-toxic, in no acute distress. HEAD: Normocephalic, atraumatic. NECK: Supple. No adenopathy, no masses. RESPIRATORY: Airway patent, respirations nonlabored. Clear to auscultation bilaterally, no rales, rhonchi, wheezing. CARDIOVASCULAR: Regular rate and rhythm without murmurs, rubs, or gallops. Peripheral pulses 2+ and equal bilaterally. ABDOMINAL: Soft, nontender, nondistended, no hepatosplenomegaly. Normoactive BS. MUSCULOSKELETAL: Moves all extremities. Strength/ROM intact without gross deformities. SKIN: Warm, dry, normal color. Mild, sporadic rash to lower arms and lower legs. No open areas, no drainage. Rash is not linear. NEURO: A&O X3. Speech clear. Cranial nerves II-XII intact. No ataxic movements. PSYCHIATRIC: Appropriate mood and affect. Normal interaction. Course Vital Signs Vital signs: Vital Signs Temperature 37.3 C 03/22/25 14:37 Pulse Rate 91 03/22/25 14:37 Respiratory Rate 18 03/22/25 14:37 Blood Pressure 149/84 H 03/22/25 14:37 Pulse Oximetry 98 03/22/25 14:37 Temperature 37.3 C 03/22/25 14:37 Pulse Rate 91 03/22/25 14:37 Respiratory Rate 18 03/22/25 14:37 Blood Pressure 149/84 H 03/22/25 14:37 Pulse Oximetry 98 03/22/25 14:37 MDM - Skin/Abscess/Foreign Bdy MDM Narrative Medical decision making narrative: Patient is a 69-year-old female who presents to the ER with concerns of a rash to her arms and legs. She reports she received her flu shot 2 weeks ago. Patient endorses experiencing flu-like symptoms for a week afterwards. She reports she recently noticed a rash on her arms and legs that woke her up out of her sleep. Patient reports the most significant symptom associated with the rash is itching. She endorses a history of diabetes, chronic sinus infections, rheumatoid arthritis. Patient reports she is on methotrexate and gets infusions to treat her RA. She denies any shortness a breath, difficulty breathing, throat swelling, lip swelling or drooling. Medications Ordered: Prednisone 40 mg p.o., hydroxyzine 25 mg p.o. Diagnosis: Contact dermatitis Patient Education/Shared MDM: Results of examination shared with patient. She was provided with a 1 time dose prednisone here in the ER. It was decided pain nurse practitioner in patient that her steroid home regimen would not be altered, but instead patient will be sent home with hydrocortisone cream. She will also be sent home with hydroxyzine to help decrease the itching. Patient strongly advised to maintain hydration status upon discharge and follow-up with her clinical immunologist as soon as possible. Strict return precautions provided. Patient verbalized understanding and is in agreement with plan. Vital signs stable at time of discharge. All questions answered. Differential Diagnosis Differential diagnosis: Likely urticaria, allergic reaction to drug, cellulitis and contact dermatitis Discharge Plan Discharge Clinical Impression: Urticaria, Contact dermatitis Patient Disposition: Home Condition: Stable Instructions: Antibiotic Form, Contact Dermatitis (ED) Additional Instructions: Please return to the ER with any worsening symptoms. Follow-up with your clinical immunologist if symptoms persist. Take all medications as prescribed, including regularly scheduled medications. You may take hydroxyzine as needed for itching. Please use hydrocortisone cream sparingly. Patient Language: Kyr[place] Prescriptions: New hydroxyzine HCl 25 mg tablet 25 mg PO TID PRN (Reason: itching) Qty: 20 0RF hydrocortisone 2.5 % cream 1 applic topical TID PRN (Reason: skin irritation) Qty: 30 0RF Follow-up/Referrals: Vincent,Long Draper [Primary Care Provider] Time of Disposition: 15:23
== END 2025-03-22 15:38 | disposition home or self-care (01) ==
PROVIDERS: Emergency Provider Registered Nurse; PCP Internal Medicine Infectious Disease
DX: L50.9 Urticaria, unspecified (principal); L25.9 Unspecified contact dermatitis, unspecified cause
CPT/HCPCS: 99283; A9270; J7512